=== PATIENT | male | born 1975 | race Caucasian/White ===

== ENCOUNTER → 2017-08-08 10:21 | Outpatient (CLI) | payer OTHER, SELFPAY ==
--- NOTE | 2017-08-08 10:32 | CT_ITS ---
CT abdomen pelvis w con CLINICAL INDICATION: Urinary frequency, chronic prostatitis, back/flank pain ITS.REASON: CHRONIC PROSTATIT, URINARY FREQUENCY, BACK PAIN ORDERING PHYSICIAN: Emerson Lyon MD PATIENT AGE: 42 years COMPARISON: 10/07/2010 TECHNIQUE: Axial images obtained with sagittal and coronal reformats. PROCEDURE: Oral Contrast: Redicat IV Contrast: 75 mL's Isovue-370. FINDINGS: Lung bases are clear. The liver, gallbladder, spleen, adrenal glands, and pancreas have an unremarkable appearance. No obstructing renal or ureteral calculus. No suspicious renal mass. There is a subcentimeter isodensity in the right kidney inferiorly and may be due to small cyst. No ureteral calculi. Urinary bladder has an unremarkable appearance. No evidence of diverticulitis or appendicitis. Mild amount retained colonic feces throughout the colon. No pelvic mass or abnormal fluid collection or focal inflammatory change. Prostate does not appear enlarged. There is a small left inguinal hernia which contains fat. No acute bony anomalies IMPRESSION: 1. No acute finding. No evidence of renal or ureteral calculi or suspicious renal mass. 2. Small left inguinal hernia containing fat
== END ==
PROVIDERS: Family Provider Emergency Medicine; PCP Emergency Medicine; Visit Provider Urology
DX: R35.0 Frequency of micturition (principal); M54.9 Dorsalgia, unspecified; N41.1 Chronic prostatitis
CPT/HCPCS: 74177; Q9967

== ENCOUNTER 2017-08-18 00:55 | Observation (INO) | payer OTHER, SELFPAY ==
[2017-08-18] VITALS (26 sets, daily range): BP systolic 97–125; BP diastolic 43–80; PULSE 62–117; RESP 14–20; TEMP 36.4–38.7; O2SAT 92–98; BMI 25.6; BMI 24.7
--- NOTE | 2017-08-18 01:22 | HMH.EDNVD ---
ED Disposition Clinical Impression: Acute appendicitis Qualifiers: Acute appendicitis type: unspecified acute appendicitis type Qualified Code(s): K35.80 - Unspecified acute appendicitis Disposition: Admitted as Observation Condition on Discharge: Good Instructions: DI for Acute Abdomen Referrals: Artur Wilson MD [Primary Care Provider] - - Critical Care Critical Care Time: No Attestation: On 08/18/17, the high probability of a clinically significant, sudden or life threatening deterioration of the following system(s) required my full and direct attention, intervention and personal management. The time I documented below is in addition to time spent performing reported procedures but includes the following listed in this critical care notation. Medical Decision Making - Medical Records Medical records reviewed: Yes: I reviewed the patient's medical records. Vital Signs: 08/18/17 00:56 Temperature 100.0 F H Temperature Source Oral Pulse Rate [Right Brachial] 117 H Respiratory Rate 16 Blood Pressure [Right Arm] 114/80 Blood Pressure Mean [Right Arm] 91 Blood Pressure Source [Right Arm] Automatic Cuff Blood Pressure Position [Right Arm] Supine 02 Sat by Pulse Oximetry 95 Oxygen Delivery Method Room Air - Lab Data Lab results reviewed: Yes: I reviewed the patient's lab results. Lab Results 08/18/17 01:35: WBC 17.4 H, RBC 5.16, Hgb 15.3, Hct 44.7, MCV 86.6, MCH 29.6, MCHC 34.1, RDW 12.9, Plt Count 252, MPV 7.5, Neut % (Auto) 87.2 H, Lymph % (Auto) 5.6 L, [place] % (Auto) 6.4, Eos % (Auto) 0.5, Baso % (Auto) 0.2, Neut # (Auto) 15.2 H, Lymph # (Auto) 1.0, [place] # (Auto) 1.1 H, Eos # (Auto) 0.1, Baso # (Auto) 0.0, Total Counted 100, Neutrophils % (Manual) 84 H, Band Neutrophils % 7.0, Lymphocytes % (Manual) 8 L, Monocytes % (Manual) 1 L, Platelet Estimate Normal, RBC Morphology Normal 08/18/17 01:35: Sodium 133 L, Potassium 3.8, Chloride 103, Carbon Dioxide 25, Anion Gap 8.8, BUN 26 H, Creatinine 1.29, Estimated Creat Clear 90, Estimated GFR 61, Est GFR ( Amer) 74, Glucose 110 H, Calcium 8.8, Total Bilirubin 0.5, AST 22, ALT 43, Alkaline Phosphatase 67, Total Protein 8.0, Albumin 4.0, Globulin 4.0 H, Albumin/Globulin Ratio 1.0 L, Amylase 70 08/18/17 01:35: Urine Color Yellow, Urine Appearance Clear, Urine pH 6.5, Ur Specific [place] 1.010, Urine Protein Trace, Urine Glucose (UA) Negative, Urine Ketones Negative, Urine Blood Negative, Urine Nitrate Negative, Urine Bilirubin Negative, Urine Urobilinogen 0.2, Ur Leukocyte Esterase Negative, Urine RBC Occasional, Urine WBC 3-5, Ur Squamous Epith Cells Occasional, Amorphous Sediment Trace 08/18/17 02:07: Influenza Type A Ag Negative, Influenza Type B Ag Negative Result diagrams: 08/18/17 01:35 08/18/17 01:35 Orders (Tests/Meds): ED MEDICATIONS Discontinued Medications Generic Name Dose Route Start Last Admin Trade Name Freq PRN Reason Stop Dose Admin Sodium Chloride 1,000 mls @ 999 mls/hr 08/18/17 01:30 08/18/17 02:00 Sod Chlor 0.9% 1000ml Bag IV 08/18/17 02:30 999 mls/hr .Q1H1M LEOLA Administration Iopamidol 75 ml 08/18/17 02:35 08/18/17 02:37 [id number]; 75ml Vial IV 08/18/17 02:36 75 ml ONCE ONE Administration Ketorolac Tromethamine 30 mg 08/18/17 02:05 08/18/17 02:15 Toradol 30mg/Ml Vial IV 08/18/17 02:06 30 mg ONCE ONE Administration Ondansetron HCl 4 mg 08/18/17 02:05 08/18/17 02:15 Zofran 4mg/2ml Vial IV 08/18/17 02:06 4 mg ONCE ONE Administration Sodium Chloride 10 ml 08/18/17 02:35 08/18/17 02:00 Rad-Saline Flush 10ml Syringe IV 08/18/17 02:36 10 ml ONCE ONE Administration ORDERS Category Date Time Status CT abdomen pelvis w con Stat Cat Scan 08/18/17 01:24 Taken CXR 2 view (NOT portable) [XR chest 2V] Stat Exams 08/18/17 01:25 Taken Lipase Stat Lab 08/18/17 01:35 Received - Radiology Data #1 Image(s): Chest Image Reviewed: Yes I reviewed the patient's
--- NOTE | 2017-08-18 01:24 | CT_ITS ---
CT abdomen pelvis w con COMPARISON: CT scan abdomen pelvis 08/08/2017 HISTORY: Right lower quadrant pain with some diarrhea TECHNIQUE: Multiple axial scans obtained from the hemidiaphragms to the pelvic floor and were performed with IV contrast only. FINDINGS: The lower lung leslie are clear. The liver spleen stomach pancreas and gallbladder appear normal. The adrenal glands are normal. The kidneys are normal size and show symmetrical function both appearing normal. There are mildly dilated fluid-filled loops of distal small bowel. There is both formed stool and some liquid stool within the cecum and lower ascending colon. Both of these findings represent a change from the recent CT scan. The appendix is well-seen and is upper limits of normal caliber measuring 8 to 9 mm in diameter. There is no significant periappendiceal or pericecal stranding. However the mildly dilated cecum could represent a mild focal ileus. There is moderate stool in the descending and sigmoid colon. The urinary bladder and prostate are normal. There is a small left inguinal hernia containing fat only. IMPRESSION: Slightly and diffusely enlarged appendix with adjacent fluid within the cecum possibly representing a focal ileus and the findings suggest possibility of a very early acute appendicitis. There may have been a 1 to 2 mm increase in diameter of the appendix when compared to the recent CT scan of 08/08/2017 and there appears to be slight wall enhancement of the appendix 1 compared to the previous study. I basically agree with the [facility] report.
--- NOTE | 2017-08-18 01:25 | XR_ITS ---
XR chest 2V INDICATION: Cough COMPARISON: PA and lateral chest 09/03/2016 FINDINGS: The lung leslie are well expanded and appear clear of infiltrate. The cardiomediastinal silhouette and vascularity are normal. The costophrenic angles are clear. The bony thorax is normal. IMPRESSION: Normal chest.
--- NOTE | 2017-08-18 01:26 | ED_ITS ---
ED Disposition Clinical Impression: Acute appendicitis Qualifiers: Acute appendicitis type: unspecified acute appendicitis type Qualified Code(s) : K35.80 - Unspecified acute appendicitis Disposition: Admitted as Observation Condition on Discharge: Good Instructions: DI for Acute Abdomen Referrals: Artur Wilsno MD [Primary Care Provider] - - Critical Care Critical Care Time: No Attestation: On 08/18/17, the high probability of a clinically significant, sudden or life threatening deterioration of the following system(s) required my full and direct attention, intervention and personal management. The time I documented below is in addition to time spent performing reported procedures but includes the following listed in this critical care notation. Medical Decision Making - Medical Records Medical records reviewed: Yes: I reviewed the patient's medical records. Vital Signs: 08/18/17 00:56 Temperature 100.0 F H Temperature Source Oral Pulse Rate [Right Brachial] 117 H Respiratory Rate 16 Blood Pressure [Right Arm] 114/80 Blood Pressure Mean [Right Arm] 91 Blood Pressure Source [Right Arm] Automatic Cuff Blood Pressure Position [Right Arm] Supine 02 Sat by Pulse Oximetry 95 Oxygen Delivery Method Room Air - Lab Data Lab results reviewed: Yes: I reviewed the patient's lab results. Lab Results 08/18/17 01:35: WBC 17.4 H, RBC 5.16, Hgb 15.3, Hct 44.7, MCV 86.6, MCH 29.6, MCHC 34.1, RDW 12.9, Plt Count 252, MPV 7.5, Neut % (Auto) 87.2 H, Lymph % (Auto ) 5.6 L, [place] % (Auto) 6.4, Eos % (Auto) 0.5, Baso % (Auto) 0.2, Neut # (Auto) 15.2 H, Lymph # (Auto) 1.0, [place] # (Auto) 1.1 H, Eos # (Auto) 0.1, Baso # (Auto ) 0.0, Total Counted 100, Neutrophils % (Manual) 84 H, Band Neutrophils % 7.0, Lymphocytes % (Manual) 8 L, Monocytes % (Manual) 1 L, Platelet Estimate Normal, RBC Morphology Normal 08/18/17 01:35: Sodium 133 L, Potassium 3.8, Chloride 103, Carbon Dioxide 25, Anion Gap 8.8, BUN 26 H, Creatinine 1.29, Estimated Creat Clear 90, Estimated GFR 61, Est GFR ( Amer) 74, Glucose 110 H, Calcium 8.8, Total Bilirubin 0.5, AST 22, ALT 43, Alkaline Phosphatase 67, Total Protein 8.0, Albumin 4.0, Globulin 4.0 H, Albumin/Globulin Ratio 1.0 L, Amylase 70 08/18/17 01:35: Urine Color Yellow, Urine Appearance Clear, Urine pH 6.5, Ur Specific [place] 1.010, Urine Protein Trace, Urine Glucose (UA) Negative, Urine Ketones Negative, Urine Blood Negative, Urine Nitrate Negative, Urine Bilirubin Negative, Urine Urobilinogen 0.2, Ur Leukocyte Esterase Negative, Urine RBC Occasional, Urine WBC 3-5, Ur Squamous Epith Cells Occasional, Amorphous Sediment Trace 08/18/17 02:07: Influenza Type A Ag Negative, Influenza Type B Ag Negative Result diagrams: 08/18/17 01:35 08/18/17 01:35 Orders (Tests/Meds): ED MEDICATIONS Discontinued Medications Generic Name Dose Route Start Last Admin Trade Name Anastacioq PRN Reason Stop Dose Admin Sodium Chloride 1,000 mls @ 999 mls/hr 08/18/17 01:30 08/18/17 02:00 Sod Chlor 0.9% 1000ml Bag IV 08/18/17 02:30 999 mls/hr .Q1H1M LEOLA Administration Iopamidol 75 ml 08/18/17 02:35 08/18/17 02:37 [id number]; 75ml Vial IV 08/18/17 02:36 75 ml ONCE ONE Administration Ketorolac Tromethamine 30 mg 08/18/17 02:05 08/18/17 02:15 Toradol 30mg/Ml Vial IV 08/18/17 02:06 30 mg ONCE ONE Administration Ondansetron HCl 4 mg 08/18/17 02:0
[2017-08-18 01:48] LABS: Microscopic, Urine URINE MICROSCOPIC (MICROSCOPIC)
[2017-08-18 01:50] LABS: Appearance,Urine CLEAR (Clear); Basophils % 0.2 % (0.1-2.0); Bilirubin,Urine Negative (Negative); Blood, Urine Negative (Negative); Color,Urine YELLOW (Yellow); Eosinophils # 0.1 K/mm3 (0.0-0.4); Eosinophils % 0.5 % (0.1-12.0); Glucose,Urine (UA) Negative (Negative); Hematocrit 44.7 % (42.0-52.0); Hemoglobin 15.3 g/dL (14.1-18.0); Ketones,Urine Negative (Negative); Leukocyte Esterase,Urine Negative (Negative); Lymphocytes % 5.6 K/mm3 (10-50); Mean Corpuscular HGB Conc 34.1 g/dL (31.8-35.4); Mean Corpuscular Hemoglobin 29.6 pg (27.0-31.2); Mean Corpuscular Volume 86.6 fl (80-94); Mean Platelet Volume 7.5 fl (7.4-10.4); Monocytes # 1.1 K/mm3 (0.1-1.0); Monocytes % 6.4 % (1.7-9.3); Neutrophils # 15.2 K/mm3 (1.8-7.8); Neutrophils % 87.2 % (37.0-80.0); Nitrate,Urine Negative (Negative); PH,Urine 6.5 (5.0-8.5); Platelet Count 252 K/mm3 (142-424); Protein,Urine TRACE (Negative); Red Blood Count 5.16 M/mm3 (4.60-6.20); Red Cell Distribution Width 12.9 % (11.5-17.5); Urobilinogen,Urine 0.2 EU/dl (0.2); White Blood Count 17.4 K/mm3 (4.8-10.8)
[2017-08-18 01:56] LABS: MANUAL DIFFERENTIAL MANUAL DIFFERENTIAL (MANUAL DIFF)
[2017-08-18 01:57] LABS: Amorphous Sediment,Urine Trace /lpf; RBC,Urine Occasional #/hpf (0-3); Squamous Epithelial Cell,Urine Occasional #/hpf (0-5)
[2017-08-18 02:02] LABS: Alanine Aminotransferase 43 U/L (12-78); Alkaline Phosphatase 67 U/L (46-116); Amylase 70 U/L (25-125); Anion Gap 8.8 mEq/L (5-15); Aspartate Amino Transferase 22 U/L (15-37); Bilirubin,Total 0.5 mg/dL (0.2-1.0); Blood Urea Nitrogen 26 mg/dL (7-18); Calcium 8.8 mg/dL (8.5-10.1); Carbon Dioxide 25 mmol/L (21.0-32.0); Chloride 103 mmol/L (98-107); Creatinine Clearance Estimated 90 mL/min (0-300); Creatinine,Serum 1.29 mg/dL (0.70-1.30); Estimated Glomerular Filt Rate 61 ml/min (>60); GFR (African American) 74 ML/MIN (>60); Glucose 110 mg/dL (74-106); Lymphocytes % 8 % (10-50); Monocytes % 1 % (2-9); Neutrophils % 84 % (42-76); Platelet Estimate Normal; Potassium 3.8 mmoL/L (3.5-5.1); RBC Morphology Normal; Sodium 133 mmol/L (136-145); Total Cells Counted 100
[2017-08-18 03:17] LABS: Lipase 168 u/L (73-393)
--- NOTE | 2017-08-18 03:27 | PC.NURSE ---
Called report to Ioana
--- NOTE | 2017-08-18 07:41 | PC.NURSE ---
DENNIS FOX RN NOTIFIED OF PATIENT TEMP 101.6
--- NOTE | 2017-08-18 07:59 | HMH.GSHP ---
HPI HPI: Abdominal pain Patient is a 42-year-old white male. He is a an unusual history that he had some sharp right lower quadrant abdominal pain he was 12 years old and there is a concern for possible appendicitis but he never underwent appendectomy. He states that for the past couple of months he has had intermittent abdominal pain. He describes this is mostly diffuse but somewhat localized to the right lower quadrant. Yesterday became quite significant and severe. He presented to the emergency department early this morning where he was found a moderate leukocytosis. He underwent CT scan with IV contrast which revealed findings of acute appendicitis. He was admitted for inpatient management and planned appendectomy. Patient denies diarrhea. Denies vomiting but has had some nausea. He does describe somewhat of a cough that is nonproductive. [facility] History Medical History: Denies:: Cancer, Diabetes Mellitus Type 1, Diabetes Mellitus Type 2, Internal Pacemaker, MRSA Other Surgeries: No: Pacemaker Amputation: No Fractures: Yes - *Social History Educational Level: Completed High School Smoking Status: Never smoker Alcohol Intake: never Occupational Status: unemployed Household Members: significant other, children - Psychiatric History Expresses thoughts of harming self/others: None Suicide Plan Description: No Plan Review of Systems - Constitutional Reports chills, Reports fever(s) - Eyes Denies change in vision - ENT Denies hearing loss - *Cardiovascular Denies chest pain - *Respiratory Reports cough - *Gastrointestinal Reports abdominal pain - *Genitourinary Reports difficulty urinating - *Musculoskeletal Reports joint swelling - *Neurologic Reports headache(s), Denies seizure-like activity Meds Home Medications Medication Instructions Recorded Confirmed Type Atorvastatin Calcium [Atorvastatin 20 mg PO DAILY 08/18/17 08/18/17 History 20mg Tab] Cyclobenzaprine HCl [Flexeril 10mg 10 mg PO TID 08/18/17 08/18/17 History tablet] Meloxicam [Mobic] 15 mg PO DAILY 08/18/17 08/18/17 History Sertraline HCl [Zoloft] 150 mg PO DAILY 08/18/17 08/18/17 History Tamsulosin HCl [Flomax 0.4mg 0.4 mg PO BID 08/18/17 08/18/17 History capsule] Zolpidem Tartrate [Ambien 10mg 10 mg PO HS 08/18/17 08/18/17 History tablet] Allergies Allergy/AdvReac Type Severity Reaction Status Date / Time meperidine Allergy Unknown Verified 08/18/17 01:59 Exam Vital signs and Labs for Last 24 Hours: Temp Pulse Resp BP Pulse Ox 101.6 F H 104 H 16 101/61 95 08/18/17 07:43 08/18/17 07:43 08/18/17 07:43 08/18/17 07:43 08/18/17 07:43 - Constitutional mild distress - *Routine Respiratory Exam Present: CTA bilaterally - *Routine Cardiovascular Exam Present: RRR - *Routine Abdominal Exam Present: soft, tenderness Assessment and Plan - Assessment and plan all Dx Assessment and Plan for all problems:: Patient's clinical presentation is somewhat atypical. However he does have pain localizing to the right lower quadrant with tenderness and CT evidence of acute appendicitis. Plan for laparoscopic with possibly open appendectomy.
--- NOTE | 2017-08-18 08:31 | HMH.ANESCL ---
[facility] Anesthesia Checklist - Patient Identification Patient Identification: Arm Band, Verbal (Name & ) - Structural Data Admitted From: Inpatient Planned Operative Procedure/s: lap appy Consent for Planned Operative Procedure(s) Verified: Yes Verified Documents: Surgical Consent - NPO Status Verified Time NPO: 00:00 - Chart Verification Results Verified: CBC, BMP - Additional verifications Patient : No Anesthesia Reactions: No Hx Blood Transfusions: No Blood Transfusion Reaction: No Cephalosporin Allergy: No Previous Colonoscopy: No - Cardiovascular Assessment Heart Sounds: S1 & S2 Pulse Strength: Baseline Pulse Rhythm: Regular Peripheral Edema: No - Airway Assessment C-Spine Mobility Assessed: Yes TMJ Mobility Assessed: Yes Dentition: Good Dentition - Neurological Assessment Level of Consciousness: Awake, Alert, Appropriate Hx Seizures: No Numbness or tingling in extremities: No - Anesthesia Plan Anesthesia Risk discussed: Yes Anesthesia Plan: Verified ASA Class: II Anesthesia Type: General [facility] Anesthesia HX I have reviewed the patient's past medical history: Yes Medical History: Reports:: Gastroesophageal Reflux Disease(GERD), Hyperlipidemia Denies:: Cancer, Diabetes Mellitus Type 1, Diabetes Mellitus Type 2, Internal Pacemaker, MRSA Other Surgeries: No: Pacemaker Amputation: No Fractures: Yes
--- NOTE | 2017-08-18 09:46 | HMH.OPNOTE ---
Date of procedure: 08/18/17 Pre-op Diagnosis:: Appendicitis Post-op diagnosis:: same Procedure performed:: Laparoscopic appendectomy Surgeon:: Octavio Maldonado MD CATERER HELPER:: Álvaro Kramer Anesthesia: GETKandace Estimated blood loss (mL): 20 Clinical Note:: Patient is a 42-year-old white male. He states that for a couple of months he has had intermittent abdominal pains. However, yesterday he developed onset of what he describes as diffuse abdominal pain. Became more intense and localized to the right lower quadrant. He ultimately presented to the emergency department early this morning on 08/18/17. He was found to have a leukocytosis of 17,000. He had CT scan with IV contrast which revealed findings suggestive of non-complicated appendicitis. He was admitted for inpatient management. Interestingly the patient had some documented fevers. Arrangements were made for appendectomy based on clinical presentation and CT findings. Operative findings:: Somewhat edematous mildly thickened non-suppurative non-necrotic appendix. Operative note:: Consent was obtained and patient was taken to the operating room. General anesthesia was induced. Saleh catheter was placed. He was given preoperative intravenous antibiotics. Abdomen was prepped and draped. Subumbilical skin incision was made and while performing abdominal wall lift Veress needle was inserted. CO2 pneumoperitoneum was achieved to 15 mmHg. 12 mm optical trocar was inserted at the umbilicus. Patient was positioned in Trendelenburg with left side down. A 5 mm trocar was inserted in the suprapubic location. 5 mm trocar was inserted in the right upper abdomen. 10 mm 0? laparoscope was replaced with a 5 mm 30? laparoscope. Appendix was identified. He did have a somewhat elongated cecum with the appendix in the pelvis on the right. Appendix was grasped and retracted anteriorly. The appendix was somewhat edematous and mildly thickened. Mesoappendix was divided with Genaro ultrasonic harmonic juan carlos with care taken to coagulate the appendiceal artery. Dissection was carried down to the appendiceal base. Appendix was amputated at its base with an endoscopic RACHID linear cutting stapling device. The appendix was placed within an Endo Catch retrieval device and removed from the peritoneal cavity via the umbilical trocar site. Appendiceal stump staple line was inspected for hemostasis and integrity which was assured. Pelvis, pericecal location, and perihepatic region were irrigated and aspirated until clear. Trochars were removed as CO2 pneumoperitoneum was evacuated. Fascia at the umbilicus was closed with 0 Vicryl [id number] suture. Local anesthetic was infiltrated. Skin incisions were closed with 4-0 Monocryl in subcuticular fashion. Steri-Strips and clean dry sterile dressings were applied. Condition: stable Disposition: PACU Specimens:: Appendix Complications:: None
--- NOTE | 2017-08-18 09:51 | P.OP_ITS ---
Date of procedure: 08/18/17 Pre-op Diagnosis:: Appendicitis Post-op diagnosis:: same Procedure performed:: Laparoscopic appendectomy Surgeon:: Octavio Maldonado MD SEARCH ENGINE OPTIMIZATION STRATEGIST:: Álvaro Kramer Anesthesia: GETKanadce Estimated blood loss (mL): 20 Clinical Note:: Patient is a 42-year-old white male. He states that for a couple of months he has had intermittent abdominal pains. However, yesterday he developed onset of what he describes as diffuse abdominal pain. Became more intense and localized to the right lower quadrant. He ultimately presented to the emergency department early this morning on 08/18/17. He was found to have a leukocytosis of 17,000. He had CT scan with IV contrast which revealed findings suggestive of non-complicated appendicitis. He was admitted for inpatient management. Interestingly the patient had some documented fevers. Arrangements were made for appendectomy based on clinical presentation and CT findings. Operative findings:: Somewhat edematous mildly thickened non-suppurative non-necrotic appendix. Operative note:: Consent was obtained and patient was taken to the operating room. General anesthesia was induced. Saleh catheter was placed. He was given preoperative intravenous antibiotics. Abdomen was prepped and draped. Subumbilical skin incision was made and while performing abdominal wall lift Veress needle was inserted. CO2 pneumoperitoneum was achieved to 15 mmHg. 12 mm optical trocar was inserted at the umbilicus. Patient was positioned in Trendelenburg with left side down. A 5 mm trocar was inserted in the suprapubic location. 5 mm trocar was inserted in the right upper abdomen. 10 mm 0? laparoscope was replaced with a 5 mm 30? laparoscope. Appendix was identified. He did have a somewhat elongated cecum with the appendix in the pelvis on the right. Appendix was grasped and retracted anteriorly. The appendix was somewhat edematous and mildly thickened. Mesoappendix was divided with Genaro ultrasonic harmonic juan carlos with care taken to coagulate the appendiceal artery. Dissection was carried down to the appendiceal base. Appendix was amputated at its base with an endoscopic RACHID linear cutting stapling device. The appendix was placed within an Endo Catch retrieval device and removed from the peritoneal cavity via the umbilical trocar site. Appendiceal stump staple line was inspected for hemostasis and integrity which was assured. Pelvis, pericecal location, and perihepatic region were irrigated and aspirated until clear. Trochars were removed as CO2 pneumoperitoneum was evacuated. Fascia at the umbilicus was closed with 0 Vicryl [id number] suture. Local anesthetic was infiltrated. Skin incisions were closed with 4-0 Monocryl in subcuticular fashion. Steri-Strips and clean dry sterile dressings were applied. Condition: stable Disposition: PACU Specimens:: Appendix Complications:: None
--- NOTE | 2017-08-18 10:05 | P.PN_ITS ---
[facility] Anesthesia Record Part I Intake, IV Amount: 900 Estimated blood loss (mL): 10 Urine output (mL): 50 Blood Products used (#): none Blood Pressure: 109/57 SaO2: 92 Pulse Rate: 79 Respiratory Rate: 18 Temperature: 99.2 F Patient is:: Drowsy, Stable Stable to PACU at:: 10:01
--- NOTE | 2017-08-18 10:06 | P.PN_ITS ---
[facility] Anesthesia Record Part II Discharge Time: 10:31 Destination: Medical Surgical Department PACU nurse assessment reviewed?: Yes Patient Condition:: Good Anesthesia Complications:: None
--- NOTE | 2017-08-18 10:21 | PC.NURSE ---
0945-Saleh Catheter removed at this time.
--- NOTE | 2017-08-18 10:46 | HMH.PHAVTE ---
[facility] Pharmacy VTE Monitoring - Patient Demographics Admission date: 08/18/17 Report Date: 08/18/17 Time: 10:46 Allergies/Adverse Reactions: Patient Allergies meperidine Allergy (Unknown, Verified 08/18/17 01:59) Height: 1.83 m Weight: 82.781 kg Patient Problems: Current Active Problems Acute appendicitis (Acute) - VTE Risk Labs: VTE Related Lab Results Hgb 15.3 g/dL (14.1-18.0) 08/18/17 01:35 Hct 44.7 % (42.0-52.0) 08/18/17 01:35 Plt Count 252 K/mm3 (142-424) 08/18/17 01:35 BUN 26 mg/dL (7-18) H 08/18/17 01:35 Creatinine 1.29 mg/dL (0.70-1.30) 08/18/17 01:35 Estimated Creat Clear 90 mL/min (0-300) 08/18/17 01:35 VTE Score: 3 VTE Risk Level: Low Risk - Prophylaxis VTE Prophylaxis Ordered?: Yes Types of VTE Prophylaxis: TEDS Knee High Location of Applied Device: Bilateral Lower Extremeties
--- NOTE | 2017-08-18 11:02 | SUR.PHASEI ---
1020-pt eating ice chips, tolerating well. 1025-pt sipping gatorade, tolerating well.
[2017-08-18 11:08] LABS: Appearance,Urine/Cath CLEAR (Clear); Bilirubin,Cath Negative (Negative); Blood, Urine/Cath Negative (Negative); Color,Urine/Cath YELLOW (Yellow); Glucose,Urine/Cath (UA) Negative (Negative); Ketones,Urine/Cath Negative (Negative); Leukocyte Esterase,Cath Negative (Negative); Microscopic,Cath URINE MICROSCOPIC (MICROSCOPIC); Nitrate,Cath Negative (Negative); PH,Urine/Cath 6.5 (5.0-8.5); Protein,Urine/Cath 1+ (Negative)
[2017-08-18 11:22] LABS: Bacteria,Urine/Cath 2+ /lpf; Squamous Epithelial Ur./Cath Occasional #/hpf (0-5)
--- NOTE | 2017-08-18 12:56 | PC.NURSE ---
0800 PATIENT HAS A TEMP OF 101.6 , AND NOTIFIED, NO NEW ORDERS GIVEN.
--- NOTE | 2017-08-18 17:13 | PC.NURSE ---
PATIENT HAD AN APPY TODAY, HAS BEEN RESTING IN BED THIS AFTERNOON. FAMILY AT BEDSIDE. HAVE GIVEN PAIN MEDS TWICE . WILL CONTINUE TO MONITOR.
--- NOTE | 2017-08-18 19:01 | PC.NURSE ---
REPORT GIVEN TO PING MAYA
[2017-08-19 04:16] VITALS: BP 93/44; PULSE 73; RESP 16; TEMP 36.8; O2SAT 94
--- NOTE | 2017-08-19 04:20 | PC.NURSE ---
PATIENT SEEMS TO HAVE RESTED WELL SO FAR THIS SHIFT. HE C/O PAIN TO LOWER ABD X2. THE FIRST C/O PAIN HE HAD HE WAS GIVEN PRN MORPHINE, WHICH BROUGHT HIS PAIN LEVEL FROM A 9/10 TO 6/10. HE RECEIVED PO PAIN MEDS THE SECOND C/O AND HAS RESTED WELL. DRESSINGS TO LAP SITES X3 ARE INTACT, WITH THE LOWER DRESSING HAVING 2 SMALL SEROUSANGUINOUS DRAINAGE SPOTS THAT HAVE REMAINED UNCHANGED SINCE THE BEGINNING OF SHIFT. PATIENT CURRENTLY IN BED RESTING. NO OTHER PROBLEMS NOTED AT THIS TIME. VSS. WILL CONTINUE TO MONITOR. SAFETY MEASURES IN PLACE, CALL LIGHT IN REACH.
[2017-08-19 06:03] LABS: Basophils % 0.1 % (0.1-2.0); Eosinophils # 0.1 K/mm3 (0.0-0.4); Eosinophils % 0.3 % (0.1-12.0); Hematocrit 38.7 % (42.0-52.0); Hemoglobin 12.9 g/dL (14.1-18.0); Lymphocytes # 2.4 K/mm3 (0.7-4.5); Lymphocytes % 15.5 K/mm3 (10-50); Mean Corpuscular HGB Conc 33.3 g/dL (31.8-35.4); Mean Corpuscular Hemoglobin 29.7 pg (27.0-31.2); Mean Corpuscular Volume 89.4 fl (80-94); Mean Platelet Volume 7.3 fl (7.4-10.4); Monocytes # 1.1 K/mm3 (0.1-1.0); Monocytes % 6.8 % (1.7-9.3); Neutrophils # 11.9 K/mm3 (1.8-7.8); Neutrophils % 77.2 % (37.0-80.0); Platelet Count 199 K/mm3 (142-424); Red Blood Count 4.33 M/mm3 (4.60-6.20); White Blood Count 15.5 K/mm3 (4.8-10.8)
[2017-08-19 06:07] LABS: MANUAL DIFFERENTIAL MANUAL DIFFERENTIAL (MANUAL DIFF)
[2017-08-19 06:24] LABS: Lymphocytes % 8 % (10-50); Monocytes % 3 % (2-9); Neutrophils % 78 % (42-76); Platelet Estimate Normal; RBC Morphology Normal; Total Cells Counted 100
[2017-08-19 07:43] VITALS: BP 104/57; PULSE 75; RESP 16; TEMP 36.8; O2SAT 94
--- NOTE | 2017-08-19 09:01 | HMH.DCSUM ---
General - General Admission date: 08/18/17 Discharge date: 08/19/17 HPI HPI: Abdominal pain Patient is a 42-year-old white male. He is a an unusual history that he had some sharp right lower quadrant abdominal pain he was 12 years old and there is a concern for possible appendicitis but he never underwent appendectomy. He states that for the past couple of months he has had intermittent abdominal pain. He describes this is mostly diffuse but somewhat localized to the right lower quadrant. Yesterday became quite significant and severe. He presented to the emergency department early this morning where he was found a moderate leukocytosis. He underwent CT scan with IV contrast which revealed findings of acute appendicitis. He was admitted for inpatient management and planned appendectomy. Patient denies diarrhea. Denies vomiting but has had some nausea. He does describe somewhat of a cough that is nonproductive. Objective Vital signs: Temp Pulse Resp BP Pulse Ox 98.2 F 75 16 104/57 94 L 08/19/17 07:43 08/19/17 07:43 08/19/17 07:43 08/19/17 07:43 08/19/17 07:43 mild distress - *Routine Respiratory Exam Present: CTA bilaterally - *Routine Cardiovascular Exam Present: RRR - *Routine Abdominal Exam Present: soft, tenderness Hospital Course Hospital Course: Patient was admitted. He was started on intravenous Unasyn for antibiotic coverage of apparent appendicitis. Interestingly, after admission he had continued low-grade fevers with fever as high as 101.6?F immediately prior to surgery. He was taken to the operating room several hours after admission and underwent laparoscopic appendectomy. Is found to have a mild to moderately inflamed edematous somewhat thickened appendix which was nonsuppurative than on necrotic. Postoperatively he was admitted for continued inpatient convalescence and care. Interestingly, following surgery he never had another fever. He was continued on Unasyn. He was given a bland diet which she tolerated without difficulty. The following morning he felt quite well. He had no nausea and no significant abdominal pain and was tolerating bland diet without difficulty. White blood cell count was rechecked and was still mildly elevated at 15,000. Plan was made for discharge home at this time with continuation of outpatient antibiotics for several days due to the mild leukocytosis. Results Labs on day of discharge: Labs from last 24 hours 08/19/17 08/18/17 05:50 09:00 WBC 15.5 H RBC 4.33 L Hgb 12.9 L Hct 38.7 L MCV 89.4 MCH 29.7 MCHC 33.3 RDW 13.0 Plt Count 199 MPV 7.3 L Neut % (Auto) 77.2 Lymph % (Auto) 15.5 [place] % (Auto) 6.8 Eos % (Auto) 0.3 Baso % (Auto) 0.1 Neut # (Auto) 11.9 H Lymph # (Auto) 2.4 [place] # (Auto) 1.1 H Eos # (Auto) 0.1 Baso # (Auto) 0.0 Total Counted 100 Neutrophils % (Manual) 78 H Band Neutrophils % 11.0 H Lymphocytes % (Manual) 8 L Monocytes % (Manual) 3 Platelet Estimate Normal RBC Morphology Normal Urine Color Yellow Urine Appearance Clear Urine pH 6.5 Ur Specific [place] 1.020 Urine Protein 1+ Urine Glucose (UA) Negative Urine Ketones Negative Urine Blood Negative Urine Nitrate Negative Urine Bilirubin Negative Urine Urobilinogen 1.0 Ur Leukocyte Esterase Negative Urine WBC 3-5 Ur Squamous Epith Cells Occasional Urine Bacteria 2+ A DS: Diagnosis - Discharge Diagnosis (1) Acute appendicitis Status: Acute Discharge Plan - Patient Discharge Instructions ACTIVITY: No heavy lifting DIET: advance to your usual diet - Follow up Plan Follow up with: Octavio Maldonado MD [Staff Physician] - 2 weeks Disposition: Home, Self-Jail Medications: Home Medications Medication Instructions Recorded Confirmed Type Atorvastatin Calcium [Atorvastatin 20 mg PO DAILY 08/18/17 08/18/17 History 20mg Tab] Cyclobenzaprine
--- NOTE | 2017-08-19 09:04 | P.DS_ITS ---
General - General Admission date: 08/18/17 Discharge date: 08/19/17 HPI HPI: Abdominal pain Patient is a 42-year-old white male. He is a an unusual history that he had some sharp right lower quadrant abdominal pain he was 12 years old and there is a concern for possible appendicitis but he never underwent appendectomy. He states that for the past couple of months he has had intermittent abdominal pain. He describes this is mostly diffuse but somewhat localized to the right lower quadrant. Yesterday became quite significant and severe. He presented to the emergency department early this morning where he was found a moderate leukocytosis. He underwent CT scan with IV contrast which revealed findings of acute appendicitis. He was admitted for inpatient management and planned appendectomy. Patient denies diarrhea. Denies vomiting but has had some nausea. He does describe somewhat of a cough that is nonproductive. Objective Vital signs: Temp Pulse Resp BP Pulse Ox 98.2 F 75 16 104/57 94 L 08/19/17 07:43 08/19/17 07:43 08/19/17 07:43 08/19/17 07:43 08/19/17 07:43 mild distress - *Routine Respiratory Exam Present: CTA bilaterally - *Routine Cardiovascular Exam Present: RRR - *Routine Abdominal Exam Present: soft, tenderness Hospital Course Hospital Course: Patient was admitted. He was started on intravenous Unasyn for antibiotic coverage of apparent appendicitis. Interestingly, after admission he had continued low-grade fevers with fever as high as 101.6?F immediately prior to surgery. He was taken to the operating room several hours after admission and underwent laparoscopic appendectomy. Is found to have a mild to moderately inflamed edematous somewhat thickened appendix which was nonsuppurative than on necrotic. Postoperatively he was admitted for continued inpatient convalescence and care. Interestingly, following surgery he never had another fever. He was continued on Unasyn. He was given a bland diet which she tolerated without difficulty. The following morning he felt quite well. He had no nausea and no significant abdominal pain and was tolerating bland diet without difficulty. White blood cell count was rechecked and was still mildly elevated at 15,000. Plan was made for discharge home at this time with continuation of outpatient antibiotics for several days due to the mild leukocytosis. Results Labs on day of discharge: Labs from last 24 hours 08/19/17 08/18/17 05:50 09:00 WBC 15.5 H RBC 4.33 L Hgb 12.9 L Hct 38.7 L MCV 89.4 MCH 29.7 MCHC 33.3 RDW 13.0 Plt Count 199 MPV 7.3 L Neut % (Auto) 77.2 Lymph % (Auto) 15.5 [place] % (Auto) 6.8 Eos % (Auto) 0.3 Baso % (Auto) 0.1 Neut # (Auto) 11.9 H Lymph # (Auto) 2.4 [place] # (Auto) 1.1 H Eos # (Auto) 0.1 Baso # (Auto) 0.0 Total Counted 100 Neutrophils % (Manual) 78 H Band Neutrophils % 11.0 H Lymphocytes % (Manual) 8 L Monocytes % (Manual) 3 Platelet Estimate Normal RBC Morphology Normal Urine Color Yellow Urine Appearance Clear Urine pH 6.5 Ur Specific [place] 1.020 Urine Protein 1+ Urine Glucose (UA) Negative Urine Ketones Negative Urine Blood Negative
== END 2017-08-19 10:15 | disposition home or self-care (01) ==
LOC: ER 03:18 → 2ND 03:52
PROVIDERS: Admitting Provider Surgery; Emergency Provider Emergency Medicine; Family Provider Emergency Medicine; PCP Nurse Anesthetist, Certified Registered; Visit Provider Surgery
PROC: 0DTJ4ZZ Resection of Appendix, Percutaneous Endoscopic Approach (ICD-10-PCS; CPT 44970; principal; 2017-08-18 08:30)
DX: K35.89 Other acute appendicitis (principal)
CPT/HCPCS: 44970; 36415; 71046; 74177; 80053; 81001; 82150; 83690; 85007; 85025; 87086; 87275; 87276; 88304; 96365; 96374; 96375; 99284; G0378; J0131; J2270; J2405; Q9967

== ENCOUNTER 2017-09-11 17:27 | Emergency (ER) | payer OTHER, SELFPAY ==
[2017-09-11 18:15] VITALS: BP 136/84; PULSE 91; RESP 18; TEMP 37.4; O2SAT 97; BMI 25.0
[2017-09-11 18:40] LABS: UTC Influenza A Antigen Negative (Negative); UTC Influenza B Antigen Negative (Negative); UTC Strep Screen (Rapid) Negative (Negative)
--- NOTE | 2017-09-11 18:55 | HMH.EDUTC ---
[facility] [place] Disposition Clinical Impression: Influenza-like illness, Exposure to influenza Disposition: Home, Self-Care Condition on Discharge: Good Instructions: DI for Influenza -- Adult Additional Instructions: * Start Tamiflu today if you are going to take it. Discussed risks, side effects, risk of allergic reaction, and possible benefits. We even discussed hallucinations and uncontrollable fevers. still wants tamiflu. Encouraged to monitor closely.. * Lots of rest * Increase fluids, water, gatorade, powerade, pedialyte if /toddler/child * Monitor Temp. Tylenol every 4 hours as needed no more then 5 times a day or 4000mg in 24 hours and/or ibuprofen every 6 hours as needed no more then 3200mg in 24 hours (as long as your primary care doctor has told you that it is ok to take both) for fever/aches/pain. ER if fever no less than 101 despite tylenol and Ibuprofen * Bromfed may cause drowsiness. Know how it effects you (or your child) before driving, caring for small children, or sending your child to school. No other antihistamines/allergy medications while taking bromfed. * You (or your child) are contagious until no fever, aches, chills x 24 hours without medication for symptoms. * * Per hospital policy, Your throat swab was sent for culture. Those results are typically sent to your primary care. Be sure to follow up in 2-3 days if no improvement so they can review those results and treat if necessary. If you don't have primary care, I recommend you get one but in the mean time, you will have to return to a walk in clinic. Prescriptions: Brompheniramine/Pseudoephed/Dm [Bromfed DM Cough Syrup 5mL] 10 ml PO QID PRN #240 ml PRN Reason: Cough Oseltamivir Phosphate [Tamiflu 75mg Capsule] 75 mg PO BID #10 cap Referrals: Artur Wilson MD [Primary Care Provider] - (Follow up IMMEDIATELY for new or worsening symptoms, improvement followed by suddenly feeling worse OR no noticeable improvement over the next 72 hours. 911 for difficulty breathing) Time of Disposition: 18:57 Medical Decision Making - Abraham Inquiry Pt receiving controlled substance: No Vital Signs: 09/11/17 18:15 09/11/17 19:06 Temperature 99.3 F 99.1 F Temperature Source Oral Pulse Rate 86 Pulse Rate [Right Radial] 91 H Respiratory Rate 18 18 Blood Pressure 135/82 Blood Pressure [Right Arm] 136/84 Blood Pressure Mean [Right Arm] 101 Blood Pressure Position [Right Arm] Sitting 02 Sat by Pulse Oximetry 97 Oxygen Delivery Method Room Air Room Air - Lab Data Lab results reviewed: Yes: I reviewed the patient's lab results. Lab Results 09/11/17 18:38: Influenza Type A Ag Negative, Influenza Type B Ag Negative, Strep Scn Rapid Clinic Negative Orders (Tests/Meds): ORDERS Category Date Time Status Strep Screen Confirmation Stat Micro 09/11/17 18:38 Received [facility] [place] HPI - General Stated complaint: cough Time Seen by Provider: 09/11/17 18:00 Mode of Arrival: Family Vehicle Source of Information: Patient Limitations: No Limitations Description of Symptoms (Recalled from Triage Doc. by RN): COUGH AND SINUS PRESSURE HEENT Symptoms (Recalled from RN notes): Yes (SINUS PRESSURE) Resp Symptoms (Recalled from RN notes): Yes (COUGH) Skin Symptoms (Recalled from RN notes): No MS Symptoms (Recalled from RN notes): No Functional Status (Recalled from RN notes): NA - History of Present Illness Provider Complaint: c/o nonprod cough and sinus pressure. Started suddenly this morning. No treatment prior to arrival. and two kids also being seen today. One with strep and two with flu. - Related Data Home Medications Medication Instructions Recorded Confirmed Atorvastatin Calcium [Atorvastatin 20 mg PO DAILY 08/18/17 09/11/17 20mg Tab] Cyclobenzaprine HCl [Flexeril 10mg 10 mg PO TID 08/18/17 09/11/17 tablet] Omeprazole [Omeprazole 40mg 40 mg PO DAILY 08/18/17 09/11/17 Capsule] Sertraline HCl [Zoloft] 150 mg PO DAILY
--- NOTE | 2017-09-11 18:58 | ED_ITS ---
[facility] [place] Disposition Clinical Impression: Influenza-like illness, Exposure to influenza Disposition: Home, Self-Care Condition on Discharge: Good Instructions: DI for Influenza -- Adult Additional Instructions: * Start Tamiflu today if you are going to take it. Discussed risks, side effects , risk of allergic reaction, and possible benefits. We even discussed hallucinations and uncontrollable fevers. still wants tamiflu. Encouraged to monitor closely.. * Lots of rest * Increase fluids, water, gatorade, powerade, pedialyte if infant/toddler/child * Monitor Temp. Tylenol every 4 hours as needed no more then 5 times a day or 4000mg in 24 hours and/or ibuprofen every 6 hours as needed no more then 3200mg in 24 hours (as long as your primary care doctor has told you that it is ok to take both) for fever/aches/pain. ER if fever no less than 101 despite tylenol and Ibuprofen * Bromfed may cause drowsiness. Know how it effects you (or your child) before driving, caring for small children, or sending your child to school. No other antihistamines/allergy medications while taking bromfed. * You (or your child) are contagious until no fever, aches, chills x 24 hours without medication for symptoms. * * Per hospital policy, Your throat swab was sent for culture. Those results are typically sent to your primary care. Be sure to follow up in 2-3 days if no improvement so they can review those results and treat if necessary. If you don' t have primary care, I recommend you get one but in the mean time, you will have to return to a walk in clinic. Prescriptions: Brompheniramine/Pseudoephed/Dm [Bromfed DM Cough Syrup 5mL] 10 ml PO QID PRN # 240 ml PRN Reason: Cough Oseltamivir Phosphate [Tamiflu 75mg Capsule] 75 mg PO BID #10 cap Referrals: Artur Wilson MD [Primary Care Provider] - (Follow up IMMEDIATELY for new or worsening symptoms, improvement followed by suddenly feeling worse OR no noticeable improvement over the next 72 hours. 911 for difficulty breathing) Time of Disposition: 18:57 Medical Decision Making - Abraham Inquiry Pt receiving controlled substance: No Vital Signs: 09/11/17 18:15 09/11/17 19:06 Temperature 99.3 F 99.1 F Temperature Source Oral Pulse Rate 86 Pulse Rate [Right Radial] 91 H Respiratory Rate 18 18 Blood Pressure 135/82 Blood Pressure [Right Arm] 136/84 Blood Pressure Mean [Right Arm] 101 Blood Pressure Position [Right Arm] Sitting 02 Sat by Pulse Oximetry 97 Oxygen Delivery Method Room Air Room Air - Lab Data Lab results reviewed: Yes: I reviewed the patient's lab results. Lab Results 09/11/17 18:38: Influenza Type A Ag Negative, Influenza Type B Ag Negative, Strep Scn Rapid Clinic Negative Orders (Tests/Meds): ORDERS Category Date Time Status Strep Screen Confirmation Stat Micro 09/11/17 18:38 Received [facility] [place] HPI - General Stated complaint: cough Time Seen by Provider: 09/11/17 18:00 Mode of Arrival: Family Vehicle Source of Information: Patient Limitations: No Limitations Description of Symptoms (Recalled from Triage Doc. by RN): COUGH AND SINUS PRESSURE HEENT Symptoms (Recalled from RN notes): Yes (SINUS PRESSURE) Resp Symptoms (Recalled from RN notes): Yes (COUGH) Skin Symptoms (Recalled from RN notes): No MS Symptoms (Recalled from RN notes): No Functional Status (Recalled from RN notes): NA - History of Present Illness Provider Complaint: c/o nonprod cough and sinus pressu
[2017-09-11 19:06] VITALS: BP 135/82; PULSE 86; RESP 18; TEMP 37.3; O2SAT 100
== END 2017-09-11 19:08 | disposition home or self-care (01) ==
PROVIDERS: Emergency Provider Nurse Practitioner Family; Family Provider Emergency Medicine; PCP Emergency Medicine
DX: J11.1 Influenza due to unidentified influenza virus with other respiratory manifestations (principal); K21.9 Gastro-esophageal reflux disease without esophagitis; E78.5 Hyperlipidemia, unspecified
CPT/HCPCS: 87804; 87880; 99202

== ENCOUNTER → 2018-04-01 13:40 | Outpatient (CLI) | payer OTHER, SELFPAY ==
[2018-04-03 07:30] LABS: H. pylori Breath Test Negative (Negative)
== END ==
PROVIDERS: PCP Emergency Medicine; Visit Provider Emergency Medicine
DX: R11.0 Nausea (principal)
CPT/HCPCS: 83013

== ENCOUNTER → 2018-07-23 17:43 | Outpatient (CLI) | payer OTHER, SELFPAY ==
[2018-07-23 20:11] LABS: Amphetamine/Metha Screen,Urine Negative ng/mL (<1000); Barbiturates Screen,Urine Negative ng/mL (<200); Benzodiazepines Screen,Urine Negative ng/mL (<200); Cannabinoid Screen,Urine Negative ng/mL (<50); Cocaine Screen,Urine Negative ng/mL (<300); Methadone Screen,Urine Negative ng/mL (<300); Opiate Screen,Urine Negative ng/mL (<300); Phencyclidine Screen,Urine Negative ng/mL (<25)
== END ==
PROVIDERS: Visit Provider Nurse Practitioner Family
DX: J02.9 Acute pharyngitis, unspecified (principal); Z79.899 Other long term (current) drug therapy
CPT/HCPCS: 80305

== ENCOUNTER → 2019-06-10 12:57 | Outpatient (CLI) | payer OTHER, SELFPAY ==
--- NOTE | 2019-06-10 13:01 | US_ITS ---
PROCEDURE: US TESTICULAR CLINICAL INDICATION: RT GROIN PAIN Right testicular pain COMPARISON: No exams were available for comparison FINDINGS: Right testicle is 4.4 x 2 x 2.6 cm. There is homogeneous echogenicity. Blood flow noted. No testicular mass evident. The epididymis is somewhat hyperechoic with heterogeneous echogenicity and mildly enlarged. The left testicle is 4.8 x 2.3 x 2.7 cm. No mass evident. There is homogeneous echogenicity with internal blood flow in unremarkable appearing epididymis. No hydrocele or spermatocele or varicocele. IMPRESSION: Heterogeneous echogenicity of the right epididymis with mild enlargement suggesting chronic epididymitis otherwise negative Dictated by: Pedro Gomez MD 06/10/2019 16:28 Electronically signed by Pedro Gomez MD in [place] 06/10/2019 16:28
== END ==
PROVIDERS: PCP Emergency Medicine; Visit Provider Surgery
DX: R10.31 Right lower quadrant pain (principal); M54.9 Dorsalgia, unspecified
CPT/HCPCS: 76870

== ENCOUNTER → 2019-07-10 09:54 | Outpatient (CLI) | payer BC, SELFPAY ==
--- NOTE | 2019-07-10 09:56 | CA_ITS ---
APPROVED REPORT EXAM: Comprehensive 2D, Doppler, and color-flow Echocardiogram Ordnance Engineering Technician: Laurence Justin RT(R) Ht: 6 ft 0 in Wt: 194lbs BSA: 2.10 BP: 117/61 mmHg Indications: SOB, Palpitations, fatigue, HTN, GERD, hyperlipidemia 2D Dimensions LVOT 2.11 cm (M/F) 1.5-2.5 M-Mode Dimensions RVDd 1.76 cm (0.9-2.6) LVDd 4.90 cm (3.5-5.7) LVDs 3.39 cm (3.5-5.7) IVSd 1.00 cm (0.6-1.1) PWd 0.82 cm (0.6-1.1) EF (Teich) 58.20% FS 30.80% EDV (Teich) 112.80 mL ESV (Teich) 47.10 mL LV Diastology E/A Ratio 1.54 Mitral Valve MV A Velocity 44.00 (40-130 cm/s) Left Ventricle Left atrium is normal size, left ventricle is normal size, left ventricle wall thickness is upper limit of the normal, there is preserved left ventricular systolic function, visually estimated ejection fraction 55% with no regional wall motion abnormality. Right Ventricle Right atrium right ventricular normal size and contractility. Aortic Valve Aortic valve is grossly normal, there is no aortic stenosis or aortic insufficiency. Mitral Valve Mitral valve is grossly normal, there is mild mitral regurgitation. Tricuspid Valve Tricuspid valve is grossly normal, there is mild tricuspid regurgitation, calculated right ventricular systolic pressure is within normal range. Pulmonic Valve Pulmonic valve is poorly visualized. Great Vessels Aortic root is normal size. Pericardium No significant pericardial effusion noted. Conclusion 1. Normal left ventricular size, preserved left ventricular systolic function, visually estimated ejection fraction 55% with no regional wall motion abnormality, diastolic parameters are within normal range. 2. Mild mitral and tricuspid regurgitation. 3. No significant pericardial effusion noted. Electronically signed by : Mario Blanco, 07/11/2019 19:14:18
--- NOTE | 2019-07-10 09:56 | CA_ITS ---
APPROVED REPORT Exam: Exercise Treadmill Technologist: Alona Colbert, Ht: 6 ft 0 in Wt: 194 lbs BSA: 2.10 m2 HR: 72 bpm BP: 130/81 mmHg Rhythm: NORMAL SINUS RHYTHM Medical History Medical History: Hyperlipidemia Medications: Omeprazole,,,,, Metoprolol,,,,, Trazadone,,,,, Lexapro,,,,, Flomax,,,,, Atorvastatin,,,,, Flexeril,,,,, ZYRTEC,,,,, Famotidine,,,,, LoraTADINE,,,,, Ambien,,,,, LanoPRAZOLE,,,,, Allergies: NKA Cardiac Risk Factors: Hyperlipidemia, FHX of CAD Stress Test Details Test: Luis Daniel HR Resting HR: 94 bpm Max Heart Rate (APMHR): 176 bpm Max HR Achieved: 170 bpm Target HR (85% APMHR): 149 bpm % of APMHR: 96 Recovery HR: 133 bpm BP Resting BP: 132.0/79.0 mmHg Max BP: 153.0/82.0 mmHg Recovery BP: 136.0/80.0 mmHg ECG Resting ECG: NORMAL SINUS RHYTHM Clinical Reason for Termination: Dyspnea Exercise duration: 09:00 min Highest Stage Achieved: Exercise capacity: 10.1 METs Stress ECG Conclusion PATIENT EXERCISED 9:00 WITH MAX HEART RATE 170 BPM WHICH IS 113% OF PM FOR AGE. METS = 10.1. TEST STOPPED DUE TO SOA. NO CHEST PAIN. NO ARRHYTHMIAS/ECTOPY. <1.5MM ST SEGMENT CHANGES. NEGATIVE TEST Test Summary Stage 3 . . . . . . . Stage held REST . . . . . . . Sitting REST 10:19 0.0 0.0 94 . 132/ 79 . . Stage 1 01:00 10.0 1.7 108 . . . . Stage 1 02:00 10.0 1.7 114 . . . . Stage 1 03:00 10.0 1.7 115 . 142/ 80 . . Stage 2 01:00 12.0 2.5 122 . . . . Stage 2 02:00 12.0 2.5 132 . 152/ 82 . . Stage 2 03:00 12.0 2.5 143 . 152/ 82 . . Stage 3 01:00 14.0 3.4 152 . . . . Stage 3 . . . . . . . Cardiolite injected Stage 3 02:00 14.0 3.4 162 . . . . Stage 3 . . . . . . . Stage held Stage 3 . . . . . . . Stage resumed Stage 3 03:00 14.0 3.4 169 . . . Stop exercise at 09:00 RECOVERY 01:00 0.0 0.0 155 . . . . RECOVERY 02:00 0.0 0.0 142 . . . . RECOVERY 03:00 0.0 0.0 122 . . . . RECOVERY 04:00 0.0 0.0 123 . 143/ 77 . . RECOVERY 05:00 0.0 0.0 117 . 153/ 82 . . RECOVERY 06:00 0.0 0.0 119 . 153/ 82 . . RECOVERY 07:00 0.0 0.0 113 . 153/ 82 . . RECOVERY 08:00 0.0 0.0 114 . 153/ 82 . . RECOVERY 09:00 0.0 0.0 0 . 153/ 82 . . RECOVERY 10:00 0.0 0.0 0 . 153/ 82 . . RECOVERY 10:32 0.0 0.0 0 . 153/ 82 . . Electronically signed by : Mario Blanco, 07/11/2019 18:39:40
--- NOTE | 2019-07-10 10:25 | NM_ITS ---
APPROVED REPORT Exam: Nuclear Stress Test Procedure: Patient exercised on Luis Daniel protocol 9:00 minutes and sec, resting heart rate 79 bpm, resting blood pressure 130/81 mmHg, with exercise maximum heart rate achived was 170 bpm which is Greater than 85 % of the maximum predicted heart rate and blood pressure was 152/80 mmHg. Patient has GERD exercise capacity, achieved 12.3 METs of workload on treadmill, the blood pressure response to exercise was Adequate. C/O SOB Electrocardiogram Resting electrocardiogram showed sinus rhythm, with exercise there is less than 1.[address] segment depression noted from the baseline EKG. The EKG portion of the exercise Myoview is negative for ischemia. Cardiac Stress and Resting SPECT Images: Cardiac Stress and Resting SPECT images were obtained using technetium 99m Myoview 31.7 mCi stress and 10.98 mCi at rest. Gated SPECT for analysis of segmental wall motion and calculation of the ejection fraction also done. Cardiac stress and resting SPECT images show uniform myocardial activity without segmental perfusion abnormality, computer derived ejection fraction is 64% with no regional wall motion abnormality, right ventricle is normal size and contractility. Conclusion: 1. The EKG portion of the exercise Myoview is negative for ischemia, patient has good exercise capacity achieved 12.3 mets of workload on treadmill, the blood pressure response to exercise was adequate, there was no exercise-induced chest discomfort. 2. No scintigraphic evidence of reversible ischemia seen, computer derived ejection fraction is 64% with no regional wall motion abnormality, right ventricle is normal size and contractility. 3. Normal exercise Myoview study. Electronically signed by : Mario Blanco, 07/11/2019 18:46:13
--- NOTE | 2019-07-10 14:36 | HMH.ITSHM ---
Current Home Medications as stated by this patient Mickey Hernandez JR or new accounts representative. []
--- NOTE | 2019-07-10 14:36 | HMH.ITSHM ---
Current Home Medications as stated by this patient Mickey Hernandez JR or b2b sales representative. []METOPROLOL AMBIEN TRAZADONE FLOMAX LORATADINE ATORVASTATIN OMEPRAZOLE LANOPRAZOLE FAMOTIDINE LEXAPRO ZYRTEC FLEXIRIL
== END ==
PROVIDERS: PCP Emergency Medicine; Visit Provider Nurse Practitioner Family
DX: R07.9 Chest pain, unspecified (principal); E78.5 Hyperlipidemia, unspecified
CPT/HCPCS: 78452; 93017; 93306; A9502

== ENCOUNTER → 2019-11-03 15:30 | Outpatient (POV) | payer BC, SELFPAY ==
[2019-11-03 15:37] VITALS: BP 152/85; PULSE 85; RESP 18; TEMP 36.8; O2SAT 99; BMI 25.0
--- NOTE | 2019-11-04 12:34 | HMH.PMCON ---
Assessment and Plan (1) Sacroiliitis Current visit: Yes Status: Chronic Category: Medical Code(s): M46.1 - Sacroiliitis, not elsewhere classified - Assessment and plan all Dx Assessment and Plan for all problems:: We will move forward with a right SI joint injection for him given his symptoms I believe it would be beneficial for him. Patient's been instructed to call the office if he has any issues prior to his next appointment. I will follow-up with him after his injection reassess his symptoms at that time. Dr. Velez has reviewed this note and agrees with this plan of care. This note was dictated using voice recognition software and may contain errors or omissions HPI - Data of Consult Consult date: 11/03/19 Requesting Physician: Meg Borrego APRN Primary Care Provider: Artur Wilson MD - Consult Narrative Reason for consult: Back pain History of present illness: Mr. Hernandez is a 44 year old male who presents today for consultation in regards to his low back pain. Feels that the pain is across his belt line on the right side. Patient has difficulty from going from a sitting position to standing position. Patient has a rating of 5 out of 10 for his pain. Nothing increases his pain and nothing truly decreases his pain. The pain does radiate into his right groin. Patient does have a positive Chava test Tyson's test and SI joint compression test. Patient and I discussed SI joint pain. CC: Meg Borrego APRN [facility] History I have reviewed the patient's past medical history: Yes Medical History: Reports:: Diabetes Mellitus Type 2, Gastroesophageal Reflux Disease(GERD), Hyperlipidemia, Internal Pacemaker Denies:: Cancer, Chronic Obstructive Pulmonary Disease (COPD), Diabetes Mellitus Type 1, MRSA, Seizures *Have you ever received a pneumonia vaccine?: Yes *Have you received a flu vaccine this season?: Yes Other Medical History: Reports: Other. Denies: Blood Transfusion Reaction Laterality Cases: Bilateral: Tonsillectomy Other Surgeries: Yes: Appendectomy, Pacemaker, Other Amputation: No Fractures: Yes - *Social History Smoking Status: Never smoker Alcohol Intake: never Substance Use Type: denies use *Occupational Status:: other Housing: house Household Members: other *Travel in the last 8 weeks: None Family Hx:: Unable to obtain Review of Systems - Review of Systems ROS General: no recent weight change, no fever, no sleep disturbances Respiratory: no cough, no shortness of air, no recurring pulmonary infections Cardiovascular/Peripheral Vascular: No chest pain, No palpitations, no edema, no shortness of breath. Gastrointestinal: no new onset incontinence, normal bowel movements reported Genitourinary: no new onset incontinence Musculoskeletal: SI joint pain on the right side Psychiatric: normal mood/ affect Neurological: [denies new onset weakness in extremities], [denies new onset balance issues] Meds Home Medications Medication Instructions Recorded Confirmed Type epinephrine 0.3 mg/0.3 mL 0.3 mg IM ONCE PRN #1 auto.injct 09/30/18 10/15/19 Rx injection, auto-injector Cetirizine HCl 10 mg PO DAILY 01/26/19 10/15/19 History trazodone 150 mg tablet 150 mg PO QHS #90 tab 05/19/19 10/15/19 Rx aspirin 81 mg tablet,delayed 81 mg PO DAILY #30 tab 07/02/19 10/15/19 Rx release loratadine 10 mg tablet mg PO DAILY tab 07/02/19 10/15/19 History famotidine 40 mg tablet See Rx Instructions .ROUTE 07/15/19 10/15/19 Rx .COMPLEX #90 each oxybutynin chloride 10 mg mg PO 07/23/19 10/15/19 History tablet,extended release 24 hr escitalopram oxalate 20 mg tablet See Rx Instructions .ROUTE 08/25/19 10/15/19 Rx .COMPLEX #90 each cyclobenzaprine 10 mg tablet See Rx Instructions .ROUTE 08/29/19 10/15/19 Rx .COMPLEX #90 each atorvastatin 10 mg tablet 10 mg PO DAILY #90 tab 09/12/19 10/15/19 Rx tamsulosin 0.4 mg capsule 0.8 mg .ROUTE BID #180 cap 09/19/19 10/15/19 Rx z
== END ==
PROVIDERS: PCP Emergency Medicine; Visit Provider Clinical Nurse Specialist Family Health
DX: M46.1 Sacroiliitis, not elsewhere classified (principal)
CPT/HCPCS: 99202

== ENCOUNTER 2019-11-18 13:55 | Day surgery (SDC) | payer BC, SELFPAY ==
[2019-11-18 14:03] VITALS: BP 129/73; PULSE 87; RESP 18; TEMP 37; O2SAT 95; BMI 24.8
--- NOTE | 2019-11-18 14:24 | P.PCN_ITS ---
- Procedure Date: 11/18/19 Time: 14:24 Anesthesiologist:: Meg Borrego APRN Complications:: None Pre-procedure Diagnosis:: Right SI joint pain, sacroiliitis Post-procedure Diagnosis:: Same Indications for Procedure:: Patient is a pleasant 44-year-old white male who presents today for a right SI joint injection. Patient has pain along the belt line of his right side. Is difficult going from sitting to standing position he rates his pain a 7 out of 10 today. Nothing increases his pain and nothing truly decreases his pain. Pain does radiate into his right groin patient does have a positive Chava test Tyson's test and SI joint compression test patient and I discussed SI joint injection however he is allergic to cortisone and prednisone. We will do this as a diagnostic for potential RFA or corner lock procedure. Physical Exam General: Alert and oriented x3, no acute distress, pleasant and cooperative, [on room air] Lungs: Resps E/U, Symmetrical chest expansion, Eyes: PERRL Musculoskeletal: Flexion and extension of lumbar spine somewhat guarded secondary to pain, deep tendon reflexes normal, strength in upper and lower extremities [5/5], slightly antalgic gait noted Neurological: speech clear, medical billing service equal, no gross sensory deficits Procedure Details:: Informed consent was obtained and the risks and benefits of the procedure were explained to the patient. Patient was taken to the procedure room. Patient was placed prone on the procedure table. The [right] hip was prepped using ChloraPrep as a cleansing solution. The skin and subcutaneous tissues were anesthetized using lidocaine. Using fluoroscopic guidance I placed a 22-gauge spinal needle into the inferior aspect of the [right] SI joint. After this I injected 5 mL bupivacaine 0.25% into the [right] SI joint. The patient tolerated the procedure well with no complication. Plan and Disposition:: We will see the patient back in the office reassess his symptoms at that time post injection he was feeling better. It was having difficulty discerning the injection site from his original pain. We will discuss potential RFA or corneal walk if this was beneficial. Dr. Velez has reviewed this note and agrees with this plan of care. This note was dictated using voice recognition software and may contain errors or omissions
[2019-11-18 14:28] VITALS: BP 125/85; PULSE 85
[2019-11-18 14:29] VITALS: BP 120/78; PULSE 85; RESP 18; O2SAT 99
[2019-11-18 14:35] VITALS: BP 113/72; PULSE 82; RESP 18; O2SAT 95
== END 2019-11-18 14:46 | disposition home or self-care (01) ==
LOC: SC.PAINP 13:57
PROVIDERS: PCP Emergency Medicine; Visit Provider Clinical Nurse Specialist Family Health
DX: M46.1 Sacroiliitis, not elsewhere classified (principal); Z88.8 Allergy status to other drugs, medicaments and biological substances; Z95.0 Presence of cardiac pacemaker; E11.9 Type 2 diabetes mellitus without complications; E78.5 Hyperlipidemia, unspecified; K21.9 Gastro-esophageal reflux disease without esophagitis; Z79.82 Long term (current) use of aspirin; Z79.899 Other long term (current) drug therapy; Z79.4 Long term (current) use of insulin
CPT/HCPCS: 27096; G0260; Q9966

== ENCOUNTER → 2019-12-09 11:09 | Outpatient (POV) | payer BC, SELFPAY ==
[2019-12-09 11:17] VITALS: BP 141/72; PULSE 87; RESP 18; O2SAT 99; BMI 24.5
--- NOTE | 2019-12-09 12:21 | HMH.PAINSOAP ---
[facility] Pain Management SOAP Note Subjective:: Patient is a pleasant 44-year-old white male presents today for follow-up after right diagnostic SI joint injection. Patient has pain along his belt line of his right side. He has difficulty going from sitting to standing position he rates his pain a 7 out of 10 today. Pain does radiate into his groin he has a positive Chava test Tyson's test and SI joint compression test. Patient and I have discussed due to his allergy to cortisone which will be a diagnostic only injection. Patient got good relief after his injection for several hours. Patient states he got 80% relief with his injection. Patient and I had a long conversation in regards to options of treatment. Patient and I discussed the coronary lock procedure and was given information in regards to it. Patient has quite some concern about downtime. Patient asked about a neurotomy. Patient would like to try this prior to potential coronary lock procedure. ROS General: no recent weight change, no fever, no sleep disturbances Respiratory: no cough, no shortness of air, no recurring pulmonary infections Cardiovascular/Peripheral Vascular: No chest pain, No palpitations, no edema, no shortness of breath. Gastrointestinal: no new onset incontinence, normal bowel movements reported Genitourinary: no new onset incontinence Musculoskeletal: Right SI joint pain Psychiatric: normal mood/ affect, Neurological: [denies new onset weakness in extremities], [denies new onset balance issues] Objective:: Physical Exam General: Alert and oriented x3, no acute distress, pleasant and cooperative, [on room air] Lungs: Resps E/U, Symmetrical chest expansion, Eyes: PERRL Musculoskeletal: Flexion and extension of lumbar spine somewhat guarded secondary to pain, deep tendon reflexes normal, strength in upper and lower extremities [5/5], [abnormal gait noted] positive Chava test SI joint compression test and Laci's test on the right side. 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 We will move forward with this. I did give him information in regards to the corner lock to take home and review. I will follow-up with him after his RFA reassess his symptoms at that time. He is instructed to call the office if he has any issues prior to his next appointment. Dr. Velez has reviewed this note and agrees with this plan of care. This note was dictated using voice recognition software and may contain errors or omissions [facility] History I have reviewed the patient's past medical history: Yes Medical History: Reports:: Gastroesophageal Reflux Disease(GERD), Hyperlipidemia, Hypertension, Internal Pacemaker Denies:: Cancer, Chronic Obstructive Pulmonary Disease (COPD), Diabetes Mellitus Type 1, Diabetes Mellitus Type 2, MRSA, Seizures *Have you ever received a pneumonia vaccine?: Yes *Have you received a flu vaccine this season?: Yes Other Medical History: Reports: Other. Denies: Blood Transfusion Reaction Laterality Cases: Bilateral: Tonsillectomy Other Surgeries: Yes: Appendectomy, Pacemaker, Other Amputation: No Fractures: Yes - *Social History Smoking Status: Never smoker Alcohol Intake: never Substance Use Type: denies use *Occupational Status:: other Housing: house Household Members: other *Travel in the last 8 weeks: None Family Hx:: Unable to obtain
== END ==
PROVIDERS: PCP Emergency Medicine; Visit Provider Clinical Nurse Specialist Family Health
DX: M46.1 Sacroiliitis, not elsewhere classified (principal)
CPT/HCPCS: 99212

== ENCOUNTER → 2020-01-09 12:48 | Day surgery (SDC) | payer BC, SELFPAY ==
[2020-01-09 12:57] VITALS: BP 133/72; RESP 18; TEMP 36.7; O2SAT 95
[2020-01-09 13:26] VITALS: BP 124/88; PULSE 85; RESP 18; O2SAT 99
--- NOTE | 2020-01-09 13:26 | HMH.PMPROC ---
- Procedure Date: 01/09/20 Time: 13:26 Anesthesiologist:: Janes Velez MD Complications:: None Pre-procedure Diagnosis:: Sacroiliitis Post-procedure Diagnosis:: Same Indications for Procedure:: This patient is a pleasant 44-year-old white male who we have been treating for right-sided sacroiliitis. He did well with previous diagnostic SI joint injections. He got temporary pain relief. He would like to proceed to radiofrequency ablation of the right SI joint. He is failed all previous conservative therapy including physical therapy, oral medications and injections. We will do a right SI joint RFA today to help him with long-term relief of his pain symptoms. Procedure Details:: Right SI joint RFA Informed consent was obtained risk and benefits of the procedure were explained to the patient. Patient was taken to the procedure room the right SI joint was prepped using ChloraPrep. I placed 20-gauge RF needles into the right SI joint. We underwent sensory stimulation. There is good sensory stimulation at 0.8 V. We underwent motor stimulation. There was no motor stimulation at 3 V. We anesthetized the right SI joint with lidocaine and Depo-Medrol 40 mg. We then burned each of the 4 needles encompassing the right SI joint at 80 ?C for 4 minutes. Patient tolerated the procedure well with no complications. Plan and Disposition:: We will follow-up with him and 2 weeks. Will reevaluate his symptoms at that time.
[2020-01-09 13:27] VITALS: BP 135/88; PULSE 89; RESP 18; O2SAT 99
[2020-01-09 13:35] VITALS: BP 135/78; PULSE 79; RESP 18; TEMP 36.7; O2SAT 98
== END ==
PROVIDERS: PCP Emergency Medicine; Visit Provider Anesthesiology
DX: M46.1 Sacroiliitis, not elsewhere classified (principal); I10 Essential (primary) hypertension; F32.9 Major depressive disorder, single episode, unspecified; G47.00 Insomnia, unspecified; N40.0 Benign prostatic hyperplasia without lower urinary tract symptoms; E78.5 Hyperlipidemia, unspecified; K21.9 Gastro-esophageal reflux disease without esophagitis; M19.90 Unspecified osteoarthritis, unspecified site; Z87.19 Personal history of other diseases of the digestive system; Z90.89 Acquired absence of other organs; Z88.8 Allergy status to other drugs, medicaments and biological substances; Z79.899 Other long term (current) drug therapy
CPT/HCPCS: 27096; G0260; J1040

== ENCOUNTER → 2020-01-29 13:05 | Outpatient (POV) | payer BC, SELFPAY ==
[2020-01-29 13:09] VITALS: BP 138/72; PULSE 71; RESP 18; O2SAT 98; BMI 24.3
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
== END ==
PROVIDERS: PCP Emergency Medicine; Visit Provider Clinical Nurse Specialist Family Health
DX: M54.5 Low back pain (principal); M25.551 Pain in right hip; R10.31 Right lower quadrant pain
CPT/HCPCS: 99212

== ENCOUNTER → 2020-02-26 14:27 | Outpatient (POV) | payer BC, SELFPAY ==
[2020-02-26 14:32] VITALS: BP 143/74; PULSE 72; RESP 18; TEMP 36.1; O2SAT 96; BMI 24.4
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
== END ==
PROVIDERS: PCP Emergency Medicine; Visit Provider Clinical Nurse Specialist Family Health
DX: M54.5 Low back pain (principal); M54.16 Radiculopathy, lumbar region; R10.31 Right lower quadrant pain; M79.604 Pain in right leg
CPT/HCPCS: 99212

== ENCOUNTER 2020-03-08 15:11 | Outpatient (RCR) | payer BC, SELFPAY ==
--- NOTE | 2020-03-08 16:02 | HMH.PTOPEV ---
PT Outpatient Evaluation Rehab PT Outpatient Evaluation Start: 03/08/20 15:32 Freq: Status: Active Protocol: Document 03/08/20 15:32 FAUSTINO (Rec: 03/08/20 16:01 FAUSTINO [id number]) Electronically Signed By Deny Geiger, PT 03/08/20 15:32 Outpatient Therapy Subjective History Subjective History Pt reports h/o chronic LBP/R LE s/s for ~1.5 yrs. Pt reports chronic R glut/groin area pain, and underwent ' burning of those nerves, but they said they must not of hit the right ones because I'm hurting worse now'. Pt reports ~1month ago rhizotomy-type procedure has increased s/s presentation, now reports R sided LBP with severe radicular s/s into R groin and down R HSmm area to knee level. Chief Complaint Pain,Spasms,Stiff,Paresthesia Symptom Type Ache,Throb,Sharp,Dull,Stabbing ,Burning Symptoms Relieved By Rest/Positioning Symptoms Aggravated By Standing,Bending/Stooping, Physical Activity,Twisting, Walking,Lifting Prior Functional Limitations Lifting,Housework,Standing, Walking,Bending/Stooping Current Functional Limitations Lifting,Housework,Standing, Walking,Bending/Stooping Symptom Description Constant but Variable Level of pain today (0-10) 8 Pain scale - at its best (0-10) 8 Pain scale - at its worst (0-10) 10 Lumbopelvic Eval Posture Thoracic Spine Posture Standing Position Neutral Lumbar Spine Posture Standing Position Neutral Assistive device Assistive Devices None / NA Gait Observation General Gait Pattern Observation Antalgic Gait Palapation tenderness left lumbar spinal tenderness Yes: 1-2/4 paraspinal tenderness Yes: 2/4 Lumbar/Sacral Palpation Findings Tenderness right lumbar spinal tenderness Yes: 3/4 paraspinal tenderness Yes: 3/4 buttock tenderness Yes: 3/4 Lumbar/Sacral Palpation Findings Tenderness,Spasm,Trigger Point ,Muscle Guarding Accessory Movement L-spine Vertebrae Accessory Movements [place] [facility] [place] that Elicit Symptoms L3 right L4 right L5 right Range of Motion Lumbar Spine Active Flexion Range of 0-40 Motion (degrees)
== END 2020-03-08 16:20 | disposition home or self-care (01) ==
LOC: PT 15:11
PROVIDERS: PCP Emergency Medicine; Visit Provider Clinical Nurse Specialist Family Health
DX: M54.5 Low back pain (principal)
CPT/HCPCS: 97010; 97014; 97035; 97163; G0283

== ENCOUNTER → 2020-03-18 13:07 | Outpatient (POV) | payer BC, SELFPAY ==
[2020-03-18 13:21] VITALS: BP 125/74; PULSE 71; RESP 18; O2SAT 99; BMI 24.3
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
== END ==
PROVIDERS: PCP Emergency Medicine; Visit Provider Clinical Nurse Specialist Family Health
DX: M54.5 Low back pain (principal); M54.16 Radiculopathy, lumbar region
CPT/HCPCS: 99212

== ENCOUNTER → 2020-04-26 08:29 | Outpatient (POV) | payer BC, SELFPAY ==
[2020-04-26 08:39] VITALS: BP 133/74; PULSE 74; RESP 18; O2SAT 98; BMI 24.9
--- NOTE | 2020-04-26 08:44 | HMH.PAINSOAP ---
[facility] Pain Management SOAP Note Subjective:: 44-year-old white male who presents today for follow-up. Patient's been denied his lumbar MRI. Patient has undergone conservative treatment for over 3 months. He has had injective therapy along with some physical therapy and medication therapy. Patient has continued to have quite a bit of pain he rates his pain 8 out of 10. He was started on Robaxin and diclofenac which did help somewhat. Patient is continuing a home stretching program. He is on anti-inflammatories. Patient's pain is in his back radiating into his right side. Patient currently waiting on his disability. ROS General: no recent weight change, no fever, no sleep disturbances Respiratory: no cough, no shortness of air, no recurring pulmonary infections Cardiovascular/Peripheral Vascular: No chest pain, No palpitations, no edema, no shortness of breath. Gastrointestinal: no new onset incontinence, normal bowel movements reported Genitourinary: no new onset incontinence Musculoskeletal: Back pain, leg pain Psychiatric: normal mood/ affect Neurological: [denies new onset weakness in extremities], [denies new onset balance issues] Objective:: Physical Exam General: Alert and oriented x3, no acute distress, pleasant and cooperative, [on room air] Lungs: Resps E/U, Symmetrical chest expansion, Eyes: PERRL Musculoskeletal: Flexion and extension of lumbar spine somewhat guarded secondary to pain, deep tendon reflexes normal, strength in upper and lower extremities [5/5], slightly antalgic gait noted Neurological: speech clear, 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 twice daily and diclofenac 75 mg 1 p.o. twice daily. We will try to approve get an approved lumbar MRI to help determine pathology. He may need a surgical consult or additional injective therapy after this. Dr. Velez has reviewed this note and agrees with this plan of care. This note was dictated using voice recognition software and may contain errors or omissions [facility] History I have reviewed the patient's past medical history: Yes Medical History: Reports:: Gastroesophageal Reflux Disease(GERD), Hyperlipidemia, Hypertension, Internal Pacemaker Denies:: Cancer, Chronic Obstructive Pulmonary Disease (COPD), Diabetes Mellitus Type 1, Diabetes Mellitus Type 2, MRSA, Seizures *Have you ever received a pneumonia vaccine?: No *Have you received a flu vaccine this season?: No Other Medical History: Reports: Other. Denies: Blood Transfusion Reaction Laterality Cases: Right: Other, Bilateral: Tonsillectomy Other Surgeries: Yes: Appendectomy, Pacemaker, Other Amputation: No Fractures: Yes - *Social History Smoking Status: Never smoker Alcohol Intake: never Substance Use Type: denies use *Occupational Status:: other Housing: house Household Members: spouse *Travel in the last 8 weeks: None Family Hx:: No significant family history
[2020-04-26 19:28] LABS: Basophils # 0.1 K/mm3 (0-0.2); Basophils % 0.7 % (0.1-2.0); Eosinophils # 0.1 K/mm3 (0.0-0.4); Eosinophils % 1.8 % (0.1-12.0); Hematocrit 47.9 % (42.0-52.0); Hemoglobin 15.8 g/dL (14.1-18.0); Lymphocytes # 2.8 K/mm3 (0.7-4.5); Mean Corpuscular HGB Conc 32.9 g/dL (31.8-35.4); Mean Corpuscular Hemoglobin 30.8 pg (27.0-31.2); Mean Corpuscular Volume 93.6 fl (80-94); Mean Platelet Volume 8.1 fl (7.4-10.4); Monocytes # 0.5 K/mm3 (0.1-1.0); Monocytes % 7.1 % (1.7-9.3); Neutrophils # 3.5 K/mm3 (1.8-7.8); Neutrophils % 50.3 % (37.0-80.0); Platelet Count 301 K/mm3 (142-424); Red Blood Count 5.12 M/mm3 (4.60-6.20); Red Cell Distribution Width 12.9 % (11.5-17.5)
[2020-04-26 19:39] LABS: Alanine Aminotransferase 26 U/L (12-78); Albumin Level 4.6 g/dl (3.5-5.0); Albumin/Globulin Ratio 1.5 (1.1-1.8); Alkaline Phosphatase 63 U/L (38-126); Anion Gap 15.7 mEq/L (5-15); Aspartate Amino Transferase 27 U/L (17-59); Bilirubin,Total 0.4 mg/dl (0.2-1.3); Blood Urea Nitrogen 26 mg/dl (9-20); Calcium 9.6 mg/dl (8.4-10.2); Carbon Dioxide 26 mmol/L (22.0-30.0); Chloride 106 mmol/L (98-107); Chol/HDL Ratio 5.8 (1-3.5); Cholesterol 220 mg/dl (140-200); Estimated Glomerular Filt Rate 72 ml/min (>60); GFR (African American) 88 ML/MIN (>60); Glucose 106 mg/dl (74-100); HDL Cholesterol 38 mg/dl (40-60); Potassium 4.7 mmoL/L (3.5-5.1); Sodium 143 mmol/L (136-145); Total Protein,Serum 7.6 g/dl (6.3-8.2); Triglycerides 370 mg/dl (30-150); VLDL Cholesterol 74 mg/dL (0-40)
[2020-04-26 19:52] LABS: Direct LDL Cholesterol 122.71 mg/dL (100-129)
[2020-04-26 19:56] LABS: 25-OH Vitamin D, Total 35.1 ng/mL (30-100)
[2020-04-26 19:59] LABS: T4 (Thyroxine) 7.8 ug/dl (5.53-11.0)
[2020-04-26 20:12] LABS: Thyroid Stimulating Hormone 0.78 uIU/mL (0.465-4.68)
== END ==
PROVIDERS: PCP Emergency Medicine; Visit Provider Clinical Nurse Specialist Family Health
DX: M54.16 Radiculopathy, lumbar region (principal); M12.88 Other specific arthropathies, not elsewhere classified, other specified site; Z68.25 Body mass index [BMI] 25.0-25.9, adult
CPT/HCPCS: 80053; 80061; 82306; 84436; 84443; 85025; 99212

== ENCOUNTER → 2020-04-26 18:06 | Outpatient (CLI) | payer BC, SELFPAY | PROVIDERS: Visit Provider Emergency Medicine | DX: S39.92XA Unspecified injury of lower back, initial encounter (principal); E55.9 Vitamin D deficiency, unspecified | CPT/HCPCS: 80053; 80061; 82306; 84436; 84443; 85025 ==

== ENCOUNTER → 2020-05-17 16:07 | Outpatient (CLI) | payer BC, SELFPAY ==
--- NOTE | 2020-05-17 | MR_ITS ---
PROCEDURE: MR LUMBAR SPINE WO CON CLINICAL INDICATION: LOW BACK PAIN Right-sided low back pain COMPARISON: [facility]/O MRI-L-SPINE W/O from 05/10/2016 TECHNIQUE: Standard multiplanar multiecho sequences are performed without contrast. 3-D MIP and myelographic images are also rendered and reviewed FINDINGS: There is normal alignment. Spinal cord ends at the L1 level. L1-L2: Unremarkable. L2-L3: Unremarkable. L3-L4: Unremarkable. L4-5 minimal bulging disc with mild facet ligamentum hypertrophy not significantly changed L5-S1: Unremarkable. No extruded herniated disc or canal stenosis. IMPRESSION: Minimal bulging disc at L4-5 with mild facet and ligamentum hypertrophy otherwise negative MRI of the lumbar spine overall not significantly changed. Dictated by: Pedro Gomez MD 05/19/2020 16:06 Pedro Gomez MD in [place] 05/19/2020 16:06
== END ==
PROVIDERS: PCP Emergency Medicine; Visit Provider Anesthesiology
DX: M54.5 Low back pain (principal)
CPT/HCPCS: 72148; 76376

== ENCOUNTER 2021-12-19 16:57 | Emergency (ER) | payer BC, SELFPAY ==
--- NOTE | 2021-12-19 17:05 | XR_ITS ---
PROCEDURE INFORMATION: Exam: XR Cervical Spine Exam date and time: 12/19/2021 5:04 PM Age: 46 years old Clinical indication: Neck pain; Additional info: Neck pain radiates down right shoulder/ arm TECHNIQUE: Imaging protocol: Radiologic exam of the cervical spine. Views: 2 or 3 views. COMPARISON: [facility] CT cervical spine wo con 01/26/2019 10:44 PM FINDINGS: Bones/joints: No acute fracture or subluxation. Mild disc space narrowing at C3-C4. Anterior spur at C6. Normal bone mineralization. Soft tissues: Unremarkable. IMPRESSION: Mild degenerative changes.
--- NOTE | 2021-12-19 17:22 | HMH.EDUTC ---
[facility] [place] Disposition Clinical Impression: Neck pain, Torticollis Disposition: Home, Self-Care Condition on Discharge: Good Instructions: Torticollis, DI for Torticollis Additional Instructions: Go home and rest. It would be best if you rested tomorrow too. No heavy lifting. No twisting. Take the oral medications as directed. The muscle relaxer (cyclobenzaprine--Flexeril) will make you drowsy, so don't drive or operate heavy machinery after taking it. Don't start the oral steroids (medrol dose pack) until tomorrow, since you had the shots in here today. Follow up with your regular doctor. GO TO THE ER FOR ANY WORSENING SYMPTOMS OR CONCERN, ESPECIALLY BOWEL OR BLADDER ISSUES, SADDLE AREA NUMBNESS, FEVER, ETC Prescriptions: Cyclobenzaprine HCl [Cyclobenzaprine 10mg Tab] 10 mg PO BIDP PRN #20 tab PRN Reason: Muscle Spasm Transmission Status: Received by [id number] methylPREDNISolone [Medrol] 4 mg PO DIRECTED 6 Days #21 packet Transmission Status: Received by [id number] Referrals: Sheron Jewell PA [Primary Care Provider] - Medical Decision Making - Medical Records Medical records reviewed: No: I reviewed the patient's medical records. - Abraham Inquiry Pt receiving controlled substance: No Vital Signs: 12/19/21 17:50 12/19/21 17:52 Temperature 98.7 F 98.7 F Temperature Source Oral Pulse Rate 94 H Pulse Rate [Left] 94 H Respiratory Rate 18 18 Blood Pressure 122/82 Blood Pressure [Right Arm] 122/82 Blood Pressure Mean [Right Arm] 95 02 Sat by Pulse Oximetry 97 Orders (Tests/Meds): ED MEDICATIONS Discontinued Medications Generic Name Dose Route Start Last Admin Trade Name Freq PRN Reason Stop Dose Admin Dexamethasone Sodium Phosphate 8 mg 12/19/21 17:30 12/19/21 17:47 Dexamethasone 4mg/Ml 1ml Vial IM 12/19/21 17:31 8 mg ONCE ONE Administration Ketorolac Tromethamine 60 mg 12/19/21 17:30 12/19/21 17:46 Ketorolac 60mg/2ml Vial IM 12/19/21 17:31 60 mg ONCE ONE Administration - Radiology Data #1 Image(s): C-Spine Image Reviewed: Yes I reviewed the patient's radiology image, Yes I have reviewed radiologist's interpretation Preliminary Findings: No Fracture Seen PROCEDURE INFORMATION: Exam: XR Cervical Spine Exam date and time: 12/19/2021 5:04 PM Age: 46 years old Clinical indication: Neck pain; Additional info: Neck pain radiates down right shoulder/ arm TECHNIQUE: Imaging protocol: Radiologic exam of the cervical spine. Views: 2 or 3 views. COMPARISON: [facility] [place] cervical spine wo con 01/26/2019 10:44 PM FINDINGS: Bones/joints: No acute fracture or subluxation. Mild disc space narrowing at C3-C4. Anterior spur at C6. Normal bone mineralization. Soft tissues: Unremarkable. IMPRESSION: Mild degenerative changes. 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 Since then he has had pain with turning his neck to the right. He also has had pain that radiates down his right arm at times. He denies any other complaints. - Related Data Home Medications Medication Instructions Recorded Confirmed cetirizine 10 mg tablet 10 mg PO DAILY PRN 11/22/21 11/22/21 Previous Rx's Medication Instructions Recorded mirabegron 50 mg tablet,extended 50 mg PO DAILY #90 tab 01/25/21 release 24 hr buspirone 5 mg tablet 5 mg PO TID #90 tab 03/24/21 metoprolol succinate 25 mg 25 mg PO DAILY #90 tab 04/18/21 tablet,extended release 24 hr quetiapine 25 mg tablet See Rx Instructions .ROUTE 07/20/21 .COMPLEX #90 tab aspirin 81 mg tablet,delayed See Rx Instructions .ROUTE 09/15/21 release .COMPLEX #90 tab ome
[2021-12-19 17:50] VITALS: BP 122/82; PULSE 94; RESP 18; TEMP 37.1; O2SAT 97; BMI 27.0
[2021-12-19 17:52] VITALS: BP 122/82; PULSE 94; RESP 18; TEMP 37.1
== END 2021-12-19 17:53 | disposition home or self-care (01) ==
PROVIDERS: Emergency Provider Nurse Practitioner Family; PCP Physician Assistant
DX: S13.4XXA Sprain of ligaments of cervical spine, initial encounter; X50.0XXA Overexertion from strenuous movement or load, initial encounter; Z79.82 Long term (current) use of aspirin; Z79.899 Other long term (current) drug therapy; Z88.8 Allergy status to other drugs, medicaments and biological substances; K21.9 Gastro-esophageal reflux disease without esophagitis; E78.5 Hyperlipidemia, unspecified; I10 Essential (primary) hypertension; Z95.0 Presence of cardiac pacemaker
CPT/HCPCS: 72040; 99212; G0463

== ENCOUNTER 2021-12-21 16:21 | Emergency (ER) | payer BC, SELFPAY ==
[2021-12-21 16:23] VITALS: BP 112/60; PULSE 86; RESP 16; TEMP 36.8; O2SAT 98; BMI 23.8
--- NOTE | 2021-12-21 16:41 | HMH.EDGENADL ---
ED Disposition Clinical Impression: Cervical strain, acute Qualifiers: Encounter type: initial encounter Qualified Code(s): S16.1XXA - Strain of muscle, fascia and tendon at neck level, initial encounter Injury to cervical nerve root Qualifiers: Encounter type: initial encounter Qualified Code(s): S14.2XXA - Injury of nerve root of cervical spine, initial encounter Disposition: Home, Self-Care Condition on Discharge: Fair Instructions: DI for Cervical Radiculopathy, DI for Cervical Muscle Strain Additional Instructions: You have been evaluated for neck injury, radicular pain. Please follow-up with your primary care doctor, Dr. Wilson in 24 to 48 hours for symptom recheck. Take anti-inflammatory medication like ibuprofen, naproxen, Excedrin. Continue Medrol Dosepak and muscle relaxers as needed. Use heat, stretching, strengthening exercises. To the emergency department at once for any new or worsening symptoms, pain, numbness, other concerns. Prescriptions: Hydrocod/Acet 5/325 mg [[place] 5/325mg tablet] 1 tab PO Q6HP PRN #6 tab PRN Reason: Severe Pain [id number] Ibuprofen [Ibuprofen 600mg Tablet] 600 mg PO Q8 #21 tab Transmission Status: Pending to [facility] Referrals: Artur Wilson MD [Primary Care Provider] - Time of Disposition: 17:24 - Critical Care Critical Care Time: No Attestation: On 12/21/21, the high probability of a clinically significant, sudden or life threatening deterioration of the following system(s) required my full and direct attention, intervention and personal management. The time I documented below is in addition to time spent performing reported procedures but includes the following listed in this critical care notation. Medical Decision Making - Medical Records Medical records reviewed: Yes: I reviewed the patient's medical records. - Abraham Inquiry Pt receiving controlled substance: No Vital Signs: 12/21/21 16:23 Temperature 98.2 F Temperature Source Oral Pulse Rate [Radial] 86 Respiratory Rate 16 Blood Pressure [Right Radial Artery] 112/60 Blood Pressure Mean [Right Radial Artery] 77 Blood Pressure Position [Right Radial Artery] Sitting 02 Sat by Pulse Oximetry 98 Oxygen Delivery Method Room Air - Lab Data Lab Results 12/21/21 16:40: WBC 13.1 H, RBC 5.02, Hgb 14.8, Hct 43.8, MCV 87.3, MCH 29.6, MCHC 33.9, RDW 12.2, Plt Count 308, MPV 6.9 L, Neut % (Auto) 62.7, Lymph % (Auto) 31.6, [place] % (Auto) 4.2, Eos % (Auto) 1.3, Baso % (Auto) 0.3, Neut # (Auto) 8.2 H, Lymph # (Auto) 4.1, [place] # (Auto) 0.6, Eos # (Auto) 0.2, Baso # (Auto) 0.0 12/21/21 16:40: C-Reactive Protein 0.7 Result diagrams: 12/21/21 16:40 Orders (Tests/Meds): ED MEDICATIONS Discontinued Medications Generic Name Dose Route Start Last Admin Trade Name Freq PRN Reason Stop Dose Admin Lidocaine 1 each 12/21/21 16:29 12/21/21 16:40 Lidocaine 5% Transdermal Patch TP 12/21/21 16:30 1 each ONCE ONE Administration Methocarbamol 500 mg 12/21/21 16:43 12/21/21 16:45 Methocarbamol 500mg Tablet PO 12/21/21 16:44 500 mg ONCE ONE Administration ORDERS Category Date Time Status Complete Blood Count Auto Diff Stat Lab 12/21/21 16:40 Results Erythrocyte Sedimentation Rate Stat Lab 12/21/21 16:40 Results Medical Decision Narrative: In summary this is a 46-year-old [id number] male presenting to the emergency department with right-sided neck pain, radiating into the right shoulder. Patient clinically stable on arrival. Vital signs within normal limits. His description of pain is most consistent with cervical strain, disc bulge, nerve compression. Will obtain CBC, ESR, CRP. Became patch applied. Patient given Robaxin Reviewed his medical record. X-rays from 48 hours ago showed no bony changes of the cervical spine. Patient was discharged with prescriptions for Medrol Dosepak and Flexeril. Sasha
[2021-12-21 16:57] LABS: Basophils % 0.3 % (0.1-2.0); Eosinophils # 0.2 K/mm3 (0.0-0.4); Eosinophils % 1.3 % (0.1-12.0); Hematocrit 43.8 % (42.0-52.0); Hemoglobin 14.8 g/dL (14.1-18.0); Lymphocytes # 4.1 K/mm3 (0.7-4.5); Lymphocytes % 31.6 % (10-50); Mean Corpuscular HGB Conc 33.9 g/dL (31.8-35.4); Mean Corpuscular Hemoglobin 29.6 pg (27.0-31.2); Mean Corpuscular Volume 87.3 fl (80-94); Mean Platelet Volume 6.9 fl (7.4-10.4); Monocytes # 0.6 K/mm3 (0.1-1.0); Monocytes % 4.2 % (1.7-9.3); Neutrophils # 8.2 K/mm3 (1.8-7.8); Neutrophils % 62.7 % (37.0-80.0); Platelet Count 308 K/mm3 (142-424); Red Blood Count 5.02 M/mm3 (4.60-6.20); Red Cell Distribution Width 12.2 % (11.5-17.5); White Blood Count 13.1 K/mm3 (4.8-10.8)
[2021-12-21 17:05] LABS: C-Reactive Protein 0.7 mg/L (0-4)
--- NOTE | 2021-12-21 17:19 | PC.NURSE ---
at the bedside updating POC
--- NOTE | 2021-12-21 17:19 | PC.NURSE ---
MD AT BEDSIDE TO UPDATE PT AND
--- NOTE | 2021-12-21 17:19 | PC.NURSE ---
ER MD at speaking with patient regarding update on POC
[2021-12-21 17:24] LABS: Erythrocyte Sedimentation Rate 4 mm/hr (0-15)
--- NOTE | 2021-12-21 17:26 | PC.WOUNDNOTE ---
UPDATED ON PLAN OF CARE
[2021-12-21 17:37] VITALS: BP 123/74; PULSE 78; RESP 16; TEMP 36.6; O2SAT 98
== END 2021-12-21 17:39 | disposition home or self-care (01) ==
PROVIDERS: Emergency Provider Emergency Medicine; PCP Emergency Medicine
DX: S16.1XXA Strain of muscle, fascia and tendon at neck level, initial encounter (principal); S14.2XXA Injury of nerve root of cervical spine, initial encounter; X50.0XXA Overexertion from strenuous movement or load, initial encounter; Z88.8 Allergy status to other drugs, medicaments and biological substances; K21.9 Gastro-esophageal reflux disease without esophagitis; E78.5 Hyperlipidemia, unspecified; I10 Essential (primary) hypertension; Z95.0 Presence of cardiac pacemaker
CPT/HCPCS: 85025; 85651; 86140; 99282

== ENCOUNTER → 2022-11-02 23:30 | Outpatient (CLI) | payer BC, SELFPAY | PROVIDERS: PCP Nurse Practitioner Family; Visit Provider Nurse Practitioner Family | DX: M54.50 Low back pain, unspecified (principal) | CPT/HCPCS: 87086 ==

== ENCOUNTER → 2023-04-25 23:47 | Outpatient (CLI) | payer BC, SELFPAY ==
[2023-04-25 18:54] LABS: Alanine Aminotransferase 31 U/L (12-78); Albumin Level 4.5 g/dl (3.5-5.0); Albumin/Globulin Ratio 1.5 (1.1-1.8); Alkaline Phosphatase 60 U/L (38-126); Anion Gap 16.9 mEq/L (5-15); Aspartate Amino Transferase 37 U/L (17-59); Bilirubin,Total 0.4 mg/dl (0.2-1.3); Blood Urea Nitrogen 20 mg/dl (9-20); Calcium 9.4 mg/dl (8.4-10.2); Carbon Dioxide 26 mmol/L (22.0-30.0); Chloride 102 mmol/L (98-107); Chol/HDL Ratio 5.2 (1-3.5); Cholesterol 223 mg/dl (140-200); Estimated Glomerular Filt Rate 65 ml/min (>60); GFR (African American) 78 ML/MIN (>60); Glucose 115 mg/dl (74-100); HDL Cholesterol 43 mg/dl (40-60); Potassium 3.9 mmoL/L (3.5-5.1); Sodium 141 mmol/L (136-145); Total Protein,Serum 7.5 g/dl (6.3-8.2); Triglycerides 313 mg/dl (30-150); VLDL Cholesterol 63 mg/dL (0-40)
[2023-04-25 19:05] LABS: Basophils % 0.4 % (0.1-2.0); Eosinophils # 0.1 K/mm3 (0.0-0.4); Eosinophils % 2.1 % (0.1-12.0); Hemoglobin 15.2 g/dL (14.1-18.0); Lymphocytes # 3.2 K/mm3 (0.7-4.5); Lymphocytes % 46.1 % (10-50); Mean Corpuscular HGB Conc 34.6 g/dL (31.8-35.4); Mean Corpuscular Hemoglobin 30.6 pg (27.0-31.2); Mean Corpuscular Volume 88.3 fl (80-94); Mean Platelet Volume 8.3 fl (7.4-10.4); Monocytes # 0.4 K/mm3 (0.1-1.0); Monocytes % 6.4 % (1.7-9.3); Neutrophils # 3.1 K/mm3 (1.8-7.8); Platelet Count 292 K/mm3 (142-424); Red Blood Count 4.98 M/mm3 (4.60-6.20); Red Cell Distribution Width 13.2 % (11.5-17.5); White Blood Count 6.8 K/mm3 (4.8-10.8)
[2023-04-25 19:07] LABS: Direct LDL Cholesterol 115.15 mg/dL (100-129)
[2023-04-25 19:12] LABS: 25-OH Vitamin D, Total 46.2 ng/mL (30-100)
[2023-04-25 19:25] LABS: Prostate Specific Ag Screen 1.2 ng/ml (0.0-4.0); Thyroid Stimulating Hormone 0.68 uIU/mL (0.465-4.68)
[2023-04-25 19:30] LABS: Hemoglobin A1C 5.4 % (4.0-6.0)
== END ==
PROVIDERS: PCP Physician Assistant; Visit Provider Student in an Organized Health Care Education/Training Program
DX: E55.9 Vitamin D deficiency, unspecified (principal); E78.5 Hyperlipidemia, unspecified; I10 Essential (primary) hypertension; Z12.5 Encounter for screening for malignant neoplasm of prostate; Z68.26 Body mass index [BMI] 26.0-26.9, adult
CPT/HCPCS: 80053; 80061; 82306; 83036; 84443; 85025; G0103

== ENCOUNTER → 2023-05-11 19:17 | Outpatient (CLI) | payer BC, SELFPAY | PROVIDERS: PCP Student in an Organized Health Care Education/Training Program; Visit Provider Student in an Organized Health Care Education/Training Program | DX: R35.0 Frequency of micturition (principal) | CPT/HCPCS: 87086 ==

== ENCOUNTER 2023-05-25 17:18 | Emergency (ER) | payer BC, SELFPAY ==
--- NOTE | 2023-05-25 17:52 | EXP.UTC ---
Discharge Plan Disposition Patient Disposition: Home, Self-Care Condition: Good Prescriptions Prescriptions: New amoxicillin [amoxicillin] 875 mg tablet 875 mg PO Q12H Qty: 20 0RF benzonatate [benzonatate] 100 mg capsule 100 mg PO TIDP PRN (Reason: Cough) Qty: 30 0RF guaifenesin [Mucinex] 600 mg tablet extended release 12hr 600 - 1,200 mg PO BIDP PRN (Reason: Congestion) Qty: 30 0RF No Action cetirizine [Zyrtec] 10 mg tablet 10 mg PO DAILY PRN (Reason: allergies ) Qty: 90 3RF metoprolol succinate 25 mg tablet extended release 24 hr See Rx Instructions .ROUTE .COMPLEX Qty: 90 3RF Dose Instruction: Take 1 tablet by mouth once daily for blood pressure Rx Instructions: Take 1 tablet by mouth once daily for blood pressure Myrbetriq 50 mg tablet extended release 24 hr See Rx Instructions .ROUTE .COMPLEX Qty: 90 3RF Dose Instruction: Take 1 tablet by mouth once daily Rx Instructions: Take 1 tablet by mouth once daily vilazodone 40 mg tablet See Rx Instructions .ROUTE .COMPLEX Qty: 90 0RF Dose Instruction: TAKE 1 TABLET BY MOUTH ONCE DAILY WITH FOOD/MEAL Rx Instructions: TAKE 1 TABLET BY MOUTH ONCE DAILY WITH FOOD/MEAL lidocaine 5 % adhesive patch,medicated 1 patch topical DAILY Qty: 15 0RF Rx Instructions: leave on most painful area for up to 12 hrs pregabalin [Lyrica] 75 mg capsule 75 mg PO BID Qty: 180 0RF zolpidem [Ambien] 10 mg tablet 10 mg PO HS PRN (Reason: insomnia) Qty: 30 0RF epinephrine 0.3 mg/0.3 mL auto-injector 0.3 mg IM ONCE PRN (Reason: Allergic Reaction) Qty: 1 1RF Rx Instructions: per package instructions aspirin 81 mg tablet,delayed release (DR/EC) See Rx Instructions .ROUTE .COMPLEX Qty: 90 3RF Dose Instruction: TAKE 1 TABLET BY MOUTH ONCE DAILY FOR HEART HEALTH Rx Instructions: TAKE 1 TABLET BY MOUTH ONCE DAILY FOR HEART HEALTH quetiapine 25 mg tablet See Rx Instructions .ROUTE .COMPLEX Qty: 90 3RF Dose Instruction: TAKE 1 TABLET BY MOUTH AT BEDTIME Rx Instructions: TAKE 1 TABLET BY MOUTH AT BEDTIME omeprazole 40 mg capsule,delayed release(DR/EC) See Rx Instructions .ROUTE .COMPLEX Qty: 90 3RF Dose Instruction: TAKE 1 CAPSULE BY MOUTH ONCE DAILY FOR 90 DAYS (SWALLOW WHOLE DO NOT CRUSH, CHEW, DISSOLVE, CUT OR BREAK) Rx Instructions: TAKE 1 CAPSULE BY MOUTH ONCE DAILY FOR 90 DAYS (SWALLOW WHOLE DO NOT CRUSH, CHEW, DISSOLVE, CUT OR BREAK) famotidine 20 mg tablet See Rx Instructions .ROUTE .COMPLEX Qty: 180 0RF Dose Instruction: TAKE 2 TABLETS BY MOUTH ONCE DAILY FOR ACID REFLUX Rx Instructions: TAKE 2 TABLETS BY MOUTH ONCE DAILY FOR ACID REFLUX trazodone 100 mg tablet 200 mg PO HS Qty: 60 10RF lansoprazole 30 mg capsule,delayed release(/EC) See Rx Instructions .ROUTE .COMPLEX Qty: 90 3RF Dose Instruction: Take 1 capsule by mouth once daily Rx Instructions: Take 1 capsule by mouth once daily tamsulosin 0.4 mg capsule See Rx Instructions .ROUTE .COMPLEX Qty: 180 0RF Dose Instruction: TAKE 1 CAPSULE BY MOUTH TWICE DAILY FOR PROSTATE AND URINATION Rx Instructions: TAKE 1 CAPSULE BY MOUTH TWICE DAILY FOR PROSTATE AND URINATION atorvastatin 20 mg tablet 20 mg PO DAILY Qty: 90 3RF naproxen 500 mg tablet 500 mg PO BID Qty: 20 0RF Referrals Follow up/Referrals: Sheron Jewell PA [Primary Care Provider] - See instructions Activity Restrictions/Add. Instructions Additional Instructions/Restrictions: Drink plenty of fluids. Take tylenol or ibuprofen for pain or fever. Take the medications as directed. Follow up with your regular doctor. GO TO THE ER FOR ANY WORSENING SYMPTOMS Clinical Impressions Clinical Impression: Sinusitis, Pharyngitis Instructions Patient Instructions: Sinusitis, DI for Pharyngitis/Tonsillophar
[2023-05-25 18:00] VITALS: BP 140/86; PULSE 84; RESP 18; TEMP 36.8; O2SAT 100; BMI 32.4
[2023-05-25 18:35] VITALS: BP 140/86; PULSE 84; RESP 18; TEMP 36.8; O2SAT 100
== END 2023-05-25 18:35 | disposition home or self-care (01) ==
PROVIDERS: Emergency Provider Nurse Practitioner Family; PCP Physician Assistant
DX: J01.90 Acute sinusitis, unspecified (principal); J02.9 Acute pharyngitis, unspecified; R09.89 Other specified symptoms and signs involving the circulatory and respiratory systems; R09.81 Nasal congestion; K21.9 Gastro-esophageal reflux disease without esophagitis; E78.5 Hyperlipidemia, unspecified
CPT/HCPCS: 99212; 99214; G0463

== ENCOUNTER → 2023-06-06 10:15 | Outpatient (CLI) | payer BC, SELFPAY ==
[2023-06-06 19:22] LABS: Amphetamine/Metha Screen,Urine Negative ng/ml (<1000)
[2023-06-06 19:24] LABS: Cannabinoid Screen,Urine Negative ng/ml (<50)
[2023-06-06 19:25] LABS: Barbiturates Screen,Urine Negative ng/ml (<200); Benzodiazepines Screen,Urine Negative ng/ml (<200)
[2023-06-06 19:26] LABS: Cocaine Screen,Urine Negative ng/ml (<300); Opiate Screen,Urine Negative ng/ml (<300)
[2023-06-06 19:27] LABS: Methadone Screen,Urine Negative ng/ml (<300)
[2023-06-06 19:30] LABS: Phencyclidine Screen,Urine Negative ng/ml (<25)
== END ==
PROVIDERS: PCP Family Medicine; Visit Provider Family Medicine
DX: G47.00 Insomnia, unspecified (principal); Z79.899 Other long term (current) drug therapy
CPT/HCPCS: 80305

== ENCOUNTER 2023-07-20 17:13 | Emergency (ER) | payer BC, SELFPAY ==
[2023-07-20 17:13] VITALS: BP 148/85; PULSE 77; RESP 18; TEMP 36.7; O2SAT 95; BMI 26.4
--- NOTE | 2023-07-20 17:36 | ED_ITS ---
Discharge Plan Disposition Patient Disposition: Home, Self-Care Condition: Good Prescriptions Prescriptions: New benzonatate [benzonatate] 100 mg capsule 100 mg PO TIDP PRN (Reason: Cough) Qty: 30 0RF methylprednisolone 4 mg Tablets,Dose Pack 4 mg PO DIRECTED 6 Days Qty: 21 0RF Rx Instructions: Take 1 pack as directed for 6 days amoxicillin-pot clavulanate 875-125 mg Tablet 1 tab PO Q12H Qty: 20 0RF No Action cetirizine [Zyrtec] 10 mg tablet 10 mg PO DAILY PRN (Reason: allergies ) Qty: 90 3RF metoprolol succinate 25 mg tablet extended release 24 hr See Rx Instructions .ROUTE .COMPLEX Qty: 90 3RF Dose Instruction: Take 1 tablet by mouth once daily for blood pressure Rx Instructions: Take 1 tablet by mouth once daily for blood pressure Myrbetriq 50 mg tablet extended release 24 hr See Rx Instructions .ROUTE .COMPLEX Qty: 90 3RF Dose Instruction: Take 1 tablet by mouth once daily Rx Instructions: Take 1 tablet by mouth once daily lidocaine 5 % adhesive patch,medicated 1 patch topical DAILY Qty: 15 0RF Rx Instructions: leave on most painful area for up to 12 hrs finasteride [Proscar] 5 mg tablet 5 mg PO DAILY Qty: 30 2RF gabapentin 100 mg capsule 100 mg PO TID Qty: 90 2RF epinephrine 0.3 mg/0.3 mL auto-injector 0.3 mg IM ONCE PRN (Reason: Allergic Reaction) Qty: 1 1RF Rx Instructions: per package instructions omeprazole 40 mg capsule,delayed release(DR/EC) See Rx Instructions .ROUTE .COMPLEX Qty: 90 3RF Dose Instruction: TAKE 1 CAPSULE BY MOUTH ONCE DAILY FOR 90 DAYS (SWALLOW WHOLE DO NOT CRUSH, CHEW, DISSOLVE, CUT OR BREAK) Rx Instructions: TAKE 1 CAPSULE BY MOUTH ONCE DAILY FOR 90 DAYS (SWALLOW WHOLE DO NOT CRUSH, CHEW, DISSOLVE, CUT OR BREAK) famotidine 20 mg tablet See Rx Instructions .ROUTE .COMPLEX Qty: 180 0RF Dose Instruction: TAKE 2 TABLETS BY MOUTH ONCE DAILY FOR ACID REFLUX Rx Instructions: TAKE 2 TABLETS BY MOUTH ONCE DAILY FOR ACID REFLUX trazodone 100 mg tablet 200 mg PO HS Qty: 60 10RF lansoprazole 30 mg capsule,delayed release(DR/EC) See Rx Instructions .ROUTE .COMPLEX Qty: 90 3RF Dose Instruction: Take 1 capsule by mouth once daily Rx Instructions: Take 1 capsule by mouth once daily atorvastatin 20 mg tablet 20 mg PO DAILY Qty: 90 3RF tadalafil 10 mg tablet 10 mg PO DAILY PRN (Reason: sexual activity) Qty: 30 2RF Rx Instructions: administer approximately 30min before sexual activity; do not use more than 1 dose per 24hrs aspirin 81 mg tablet,delayed release (DR/EC) See Rx Instructions .ROUTE .COMPLEX Qty: 90 3RF Dose Instruction: TAKE 1 TABLET BY MOUTH ONCE DAILY FOR HEART HEALTH Rx Instructions: TAKE 1 TABLET BY MOUTH ONCE DAILY FOR HEART HEALTH quetiapine 25 mg tablet See Rx Instructions .ROUTE .COMPLEX Qty: 90 3RF Dose Instruction: TAKE 1 TABLET BY MOUTH AT BEDTIME Rx Instructions: TAKE 1 TABLET BY MOUTH AT BEDTIME tamsulosin 0.4 mg capsule See Rx Instructions .ROUTE .COMPLEX Qty: 180 0RF Dose Instruction: TAKE 1 CAPSULE BY MOUTH TWICE DAILY FOR PROSTATE AND URINATION Rx Instructions: TAKE 1 CAPSULE BY MOUTH TWICE DAILY FOR PROSTATE AND URINATION vilazodone 40 mg tablet See Rx Instructions .ROUTE .COMPLEX Qty: 90 0RF Dose Instruction: TAKE 1 TABLET BY MOUTH ONCE DAILY WITH FOOD/MEAL Rx Instructions: TAKE 1 TABLET BY MOUTH ONCE DAILY WITH FOOD/MEAL zolpidem [Ambien] 10 mg tablet 10 mg PO HS PRN (Reason: insomnia) Qty: 30 0RF Referrals Follow up/Referrals: Sheron Jewell PA [Primary Care Provider] - See instructions Activity Restrictions/Add. Instructions Additional Instructions/Restrictions: Drink plenty of fluids. Take tylenol or ibuprofen for pain or fever. Take the medications as directed. Follow up with your regular doctor. GO TO THE ER FOR ANY WORSENING SYMPTOMS Clinical Impressions Clinical Impression: Bronchitis, Pharyngitis Stand Alone Forms Stand Alone Forms: Work/School Release Instructions Patient Instructions: Sore Throat, DI for Pharyngitis/Tonsillopharyngitis -- Adult Discharge ED Provider: Colton Hood [facility] General Stated complaint: cough, congestion, sore throat Mode of Arrival: Ambulatory Source of Information: Parent(s) Limitations: No Limitations Time Seen by Provider: 07/20/23 17:36 Description of Symptoms (Recalled from Triage Doc. by RN): Pt's symptoms are cough, congestion, DUNN, fever, stomach ache, and sore throat. HEENT Symptoms (Recalled from RN notes): Yes Resp Symptoms (Recalled from RN notes): No Skin Symptoms (Recalled from RN notes): No MS Symptoms (Recalled from RN notes): No Functional Status (Recalled from RN notes): n/a History of Present Illness Provider Complaint: He states that for the past 3 days he has had sore throat, chills, cough and sinus congestion. Related Data Previous Rx's Medication Instructions Recorded epinephrine 0.3 mg/0.3 mL 0.3 mg (0.3 mL) IM ONCE PRN 12/08/21 injection, auto-injector Allergic Reaction ##1 cetirizine 10 mg tablet (Zyrtec) 10 mg PO DAILY PRN allergies #90 09/18/22 tabs metoprolol succinate 25 mg See Rx Instructions .Route 09/18/22 tablet,extended release 24 hr .COMPLEX #90 tabs mirabegron 50 mg tablet,extended See Rx Instructions .Route 09/18/22 release 24 hr (Myrbetriq) .COMPLEX #90 tabs omeprazole 40 mg capsule,delayed See Rx Instructions .Route 11/27/22 release .COMPLEX #90 caps famotidine 20 mg tablet See Rx Instructions .Route 12/06/22 .COMPLEX #180 tabs trazodone 100 mg tablet 200 mg PO HS #60 tabs 12/06/22 lansoprazole 30 mg capsule,delayed See Rx Instructions .Route 01/30/23 release .COMPLEX #90 caps lidocaine 5 % topical patch 1 patch topical DAILY #15 ea 04/25/23 atorvastatin 20 mg tablet 20 mg PO DAILY #90 tabs 05/08/23 finasteride 5 mg tablet (Proscar) 5 mg PO DAILY #30 tabs 06/06/23 gabapentin 100 mg capsule 100 mg PO TID #90 caps 06/06/23 tadalafil 10 mg tablet 10 mg PO DAILY PRN sexual activity 06/17/23 #30 tabs aspirin 81 mg tablet,delayed See Rx Instructions .Route 06/19/23 release .COMPLEX #90 tabs quetiapine 25 mg tablet See Rx Instructions .Route 07/13/23 .COMPLEX #90 tabs tamsulosin 0.4 mg capsule See Rx Instructions .Route 07/13/23 .COMPLEX #180 caps vilazodone 40 mg tablet See Rx Instructions .Route 07/16/23 .COMPLEX #90 tabs zolpidem 10 mg tablet (Ambien) 10 mg PO HS PRN insomnia #30 tabs 07/19/23 amoxicillin 875 mg-potassium 1 tab PO Q12H #20 tabs 07/20/23 clavulanate 125 mg tablet benzonatate 100 mg capsule 100 mg PO TIDP PRN Cough #30 caps 07/20/23 methylprednisolone 4 mg tablets in 4 mg PO DIRECTED 6 days #21 tabs 07/20/23 a dose pack Allergies Allergy/AdvReac Type Severity Reaction Status Date / Time cabozantinib [From [employer]] Allergy Verified 07/20/23 17:30 cortisone Allergy Verified 07/20/23 17:30 meperidine Allergy Verified 07/20/23 17:30 Worker's Comp Is this a Worker's Comp case?: No [facility] Disclaimer: The information contained in this section may have been updated after the patient was seen, as this information can be updated by other users. Medical History (Updated 07/20/23 @ 17:47 by Colton Hood APRN) Anxiety BPH (benign prostatic hyperplasia) Depression Eustachian tube dysfunction GERD (gastroesophageal reflux disease) Hyperlipidemia Insomnia Low back pain Osteoarthritis Pharyngitis PTSD (post-traumatic stress disorder) Sacroiliitis Sinusitis Surgical History No significant past surgical history Family History Other No significant family history Social History Smoking Status: Never smoker second hand exposure: No alcohol intake: never substance use type: denies use current occupational status: other Travel in the last 8 weeks: None household members: spouse housing: house current occupational exposures/hazards: No caffeine: Yes ROS Obtained: Yes All systems reviewed & no additional complaints except as documented Constitutional Constitutional: Reports chills and Reports fever(s) Eyes Eyes: Denies eye discharge ENT Ears, Nose, Mouth, and Throat: Reports as per HPI Cardiovascular Cardiovascular: Denies chest pain Respiratory Respiratory: Denies chest congestion and Reports cough Gastrointestinal Gastrointestingal: Reports nausea; Denies abdominal pain, constipation, cramping, diarrhea or vomiting Musculoskeletal Musculoskeletal: Denies arthralgias Integumentary/Breasts Skin/Breast: Denies rash Neurologic Neurologic: Denies paresthesias Physical Exam General General appearance: alert and in no apparent distress Eye Eye exam: Present normal appearance, PERRL and EOMI ENT ENT exam: Present mucous membranes moist and normal external ear exam Expanded ENT Exam External ear exam: Present normal external inspection TM/Canal exam: Bilateral TM: erythema and bulging Nose exam: Absent sinus tenderness Nasal speculum exam: Bilateral: normal Mouth exam: Present normal external inspection; Absent drooling Teeth exam: Present normal inspection Throat exam: Present tonsillar erythema and tonsillomegaly Neck Neck exam: Present normal inspection, full ROM and trachea midline; Absent tenderness, lymphadenopathy or thyromegaly Chest Chest inspection: Present normal inspection and symmetric chest wall rise; Absent tenderness or rash Respiratory Respiratory exam: Present normal lung sounds bilaterally; Absent respiratory distress, wheezes, stridor or accessory muscle use Cardiovascular Cardiovascular exam: Present regular rate, normal rhythm and normal heart sounds Abdominal Exam Abdominal exam: Present soft; Absent distention, tenderness, guarding, rebound or rigidity Extremities Exam Extremities exam: Present normal inspection, full ROM and normal capillary refill; Absent tenderness or calf tenderness Back Exam Back exam: Present normal inspection and full ROM; Absent tenderness Neurological Exam Neurological exam: Present alert and oriented X3 Psychiatric Psychiatric exam: Present normal affect and normal mood Skin Skin exam: Present warm, dry, intact and normal color Lymphatic Lymphatic Findings: no adenopathy Medical Decision Making Medical Records Medical records reviewed: No I reviewed the patient's medical records. Abraham Inquiry Pt receiving controlled substance: No Vital Signs: 07/20/23 17:13 Temperature 98.1 F Temperature Source Oral Pulse Rate [Right Radial] 77 Respiratory Rate 18 Blood Pressure [Right Arm] 148/85 H Blood Pressure Mean [Right Arm] 106 Blood Pressure Source [Right Arm] Automatic Cuff Blood Pressure Position [Right Arm] Sitting 02 Sat by Pulse Oximetry 95 Oxygen Delivery Method Room Air Lab Data Lab results reviewed: Yes I reviewed the patient's lab results.
[2023-07-20 17:44] LABS: UTC Influenza A Antigen Negative (Negative); UTC Influenza B Antigen Negative (Negative); UTC Strep Screen (Rapid) Negative (Negative)
[2023-07-20 17:52] VITALS: BP 148/85; PULSE 77; RESP 18; TEMP 36.7; O2SAT 95
== END 2023-07-20 17:51 | disposition home or self-care (01) ==
PROVIDERS: Emergency Provider Nurse Practitioner Family; PCP Physician Assistant
DX: J20.9 Acute bronchitis, unspecified (principal); J02.9 Acute pharyngitis, unspecified; R05.9 Cough, unspecified; R09.81 Nasal congestion; K21.9 Gastro-esophageal reflux disease without esophagitis; E78.5 Hyperlipidemia, unspecified
CPT/HCPCS: 87804; 87880; 99212; 99214; G0463

== ENCOUNTER 2023-08-04 16:22 | Emergency (ER) | payer BC, SELFPAY ==
[2023-08-04 16:45] VITALS: BP 138/87; PULSE 100; RESP 18; TEMP 37.3; O2SAT 96; BMI 25.5
--- NOTE | 2023-08-04 16:54 | ED_ITS ---
Discharge Plan Disposition Patient Disposition: Home, Self-Care Condition: Good Prescriptions Prescriptions: New promethazine-DM 6.25-15 mg/5 mL Syrup 5 ml PO Q6H PRN (Reason: Cough) Qty: 240 0RF ibuprofen [IBU] 800 mg tablet 800 mg PO Q8HP PRN (Reason: Moderate Pain) Qty: 30 0RF oseltamivir [Tamiflu] 75 mg capsule 75 mg PO BID Qty: 10 0RF No Action cetirizine [Zyrtec] 10 mg tablet 10 mg PO DAILY PRN (Reason: allergies ) Qty: 90 3RF metoprolol succinate 25 mg tablet extended release 24 hr See Rx Instructions .ROUTE .COMPLEX Qty: 90 3RF Dose Instruction: Take 1 tablet by mouth once daily for blood pressure Rx Instructions: Take 1 tablet by mouth once daily for blood pressure Myrbetriq 50 mg tablet extended release 24 hr See Rx Instructions .ROUTE .COMPLEX Qty: 90 3RF Dose Instruction: Take 1 tablet by mouth once daily Rx Instructions: Take 1 tablet by mouth once daily lidocaine 5 % adhesive patch,medicated 1 patch topical DAILY Qty: 15 0RF Rx Instructions: leave on most painful area for up to 12 hrs finasteride [Proscar] 5 mg tablet 5 mg PO DAILY Qty: 30 2RF gabapentin 100 mg capsule 100 mg PO TID Qty: 90 2RF epinephrine 0.3 mg/0.3 mL auto-injector 0.3 mg IM ONCE PRN (Reason: Allergic Reaction) Qty: 1 1RF Rx Instructions: per package instructions omeprazole 40 mg capsule,delayed release(DR/EC) See Rx Instructions .ROUTE .COMPLEX Qty: 90 3RF Dose Instruction: TAKE 1 CAPSULE BY MOUTH ONCE DAILY FOR 90 DAYS (SWALLOW WHOLE DO NOT CRUSH, CHEW, DISSOLVE, CUT OR BREAK) Rx Instructions: TAKE 1 CAPSULE BY MOUTH ONCE DAILY FOR 90 DAYS (SWALLOW WHOLE DO NOT CRUSH, CHEW, DISSOLVE, CUT OR BREAK) famotidine 20 mg tablet See Rx Instructions .ROUTE .COMPLEX Qty: 180 0RF Dose Instruction: TAKE 2 TABLETS BY MOUTH ONCE DAILY FOR ACID REFLUX Rx Instructions: TAKE 2 TABLETS BY MOUTH ONCE DAILY FOR ACID REFLUX trazodone 100 mg tablet 200 mg PO HS Qty: 60 10RF lansoprazole 30 mg capsule,delayed release(DR/EC) See Rx Instructions .ROUTE .COMPLEX Qty: 90 3RF Dose Instruction: Take 1 capsule by mouth once daily Rx Instructions: Take 1 capsule by mouth once daily atorvastatin 20 mg tablet 20 mg PO DAILY Qty: 90 3RF tadalafil 10 mg tablet 10 mg PO DAILY PRN (Reason: sexual activity) Qty: 30 2RF Rx Instructions: administer approximately 30min before sexual activity; do not use more than 1 dose per 24hrs aspirin 81 mg tablet,delayed release (DR/EC) See Rx Instructions .ROUTE .COMPLEX Qty: 90 3RF Dose Instruction: TAKE 1 TABLET BY MOUTH ONCE DAILY FOR HEART HEALTH Rx Instructions: TAKE 1 TABLET BY MOUTH ONCE DAILY FOR HEART HEALTH quetiapine 25 mg tablet See Rx Instructions .ROUTE .COMPLEX Qty: 90 3RF Dose Instruction: TAKE 1 TABLET BY MOUTH AT BEDTIME Rx Instructions: TAKE 1 TABLET BY MOUTH AT BEDTIME tamsulosin 0.4 mg capsule See Rx Instructions .ROUTE .COMPLEX Qty: 180 0RF Dose Instruction: TAKE 1 CAPSULE BY MOUTH TWICE DAILY FOR PROSTATE AND URINATION Rx Instructions: TAKE 1 CAPSULE BY MOUTH TWICE DAILY FOR PROSTATE AND URINATION vilazodone 40 mg tablet See Rx Instructions .ROUTE .COMPLEX Qty: 90 0RF Dose Instruction: TAKE 1 TABLET BY MOUTH ONCE DAILY WITH FOOD/MEAL Rx Instructions: TAKE 1 TABLET BY MOUTH ONCE DAILY WITH FOOD/MEAL zolpidem [Ambien] 10 mg tablet 10 mg PO HS PRN (Reason: insomnia) Qty: 30 0RF doxepin 25 mg capsule 25 mg PO HS Qty: 90 3RF benzonatate [benzonatate] 100 mg capsule 100 mg PO TIDP PRN (Reason: Cough) Qty: 30 0RF methylprednisolone 4 mg Tablets,Dose Pack 4 mg PO DIRECTED 6 Days Qty: 21 0RF Rx Instructions: Take 1 pack as directed for 6 days amoxicillin-pot clavulanate 875-125 mg Tablet 1 tab PO Q12H Qty: 20 0RF Referrals Follow up/Referrals: Sheron Jewell PA [Primary Care Provider] - See instructions Activity Restrictions/Add. Instructions Additional Instructions/Restrictions: Drink plenty of fluids. Take tylenol or ibuprofen for pain or fever. Take the medications as directed. Follow up with your regular doctor. GO TO THE ER FOR ANY WORSENING SYMPTOMS The cough medication (promethazine dm) will make you drowsy, so don't drive or operate heavy machinery after taking it. Clinical Impressions Clinical Impression: Influenza B Instructions Patient Instructions: DI for Influenza -- Adult, Promethazine Discharge ED Provider: Colton Hood [facility] General Stated complaint: cough, bin, runny nose Time Seen by Provider: 08/04/23 16:54 History of Present Illness Provider Complaint: He states that for the past 2 days he has had fever, chills, body aches, and malaise. Related Data Previous Rx's Medication Instructions Recorded epinephrine 0.3 mg/0.3 mL 0.3 mg (0.3 mL) IM ONCE PRN 12/08/21 injection, auto-injector Allergic Reaction ##1 cetirizine 10 mg tablet (Zyrtec) 10 mg PO DAILY PRN allergies #90 09/18/22 tabs metoprolol succinate 25 mg See Rx Instructions .Route 09/18/22 tablet,extended release 24 hr .COMPLEX #90 tabs mirabegron 50 mg tablet,extended See Rx Instructions .Route 09/18/22 release 24 hr (Myrbetriq) .COMPLEX #90 tabs omeprazole 40 mg capsule,delayed See Rx Instructions .Route 11/27/22 release .COMPLEX #90 caps famotidine 20 mg tablet See Rx Instructions .Route 12/06/22 .COMPLEX #180 tabs trazodone 100 mg tablet 200 mg PO HS #60 tabs 12/06/22 lansoprazole 30 mg capsule,delayed See Rx Instructions .Route 01/30/23 release .COMPLEX #90 caps lidocaine 5 % topical patch 1 patch topical DAILY #15 ea 04/25/23 atorvastatin 20 mg tablet 20 mg PO DAILY #90 tabs 05/08/23 finasteride 5 mg tablet (Proscar) 5 mg PO DAILY #30 tabs 06/06/23 gabapentin 100 mg capsule 100 mg PO TID #90 caps 06/06/23 tadalafil 10 mg tablet 10 mg PO DAILY PRN sexual activity 06/17/23 #30 tabs aspirin 81 mg tablet,delayed See Rx Instructions .Route 06/19/23 release .COMPLEX #90 tabs quetiapine 25 mg tablet See Rx Instructions .Route 07/13/23 .COMPLEX #90 tabs tamsulosin 0.4 mg capsule See Rx Instructions .Route 07/13/23 .COMPLEX #180 caps vilazodone 40 mg tablet See Rx Instructions .Route 07/16/23 .COMPLEX #90 tabs zolpidem 10 mg tablet (Ambien) 10 mg PO HS PRN insomnia #30 tabs 07/19/23 amoxicillin 875 mg-potassium 1 tab PO Q12H #20 tabs 07/20/23 clavulanate 125 mg tablet benzonatate 100 mg capsule 100 mg PO TIDP PRN Cough #30 caps 07/20/23 methylprednisolone 4 mg tablets in 4 mg PO DIRECTED 6 days #21 tabs 07/20/23 a dose pack doxepin 25 mg capsule 25 mg PO HS #90 caps 07/30/23 ibuprofen 800 mg tablet (IBU) 800 mg PO Q8HP PRN Moderate Pain 08/04/23 #30 tabs oseltamivir 75 mg capsule (Tamiflu) 75 mg PO BID #10 caps 08/04/23 promethazine-DM 6.25 mg-15 mg/5 mL 5 ml PO Q6H PRN Cough #240 mL 08/04/23 oral syrup Allergies Allergy/AdvReac Type Severity Reaction Status Date / Time cabozantinib [From [employer]] Allergy Verified 08/04/23 16:59 cortisone Allergy Verified 08/04/23 16:59 meperidine Allergy Verified 08/04/23 16:59 PFSH PFSH Disclaimer: The information contained in this section may have been updated after the patient was seen, as this information can be updated by other users. Medical History (Updated 08/04/23 @ 17:04 by Colton Hood APRN) Anxiety BPH (benign prostatic hyperplasia) Depression Eustachian tube dysfunction GERD (gastroesophageal reflux disease) Hyperlipidemia Insomnia Low back pain Osteoarthritis Pharyngitis PTSD (post-traumatic stress disorder) Sacroiliitis Sinusitis Surgical History No significant past surgical history Family History Other No significant family history Social History Smoking Status: Never smoker second hand exposure: No alcohol intake: never substance use type: denies use current occupational status: other Travel in the last 8 weeks: None household members: spouse housing: house current occupational exposures/hazards: No caffeine: Yes ROS Obtained: Yes All systems reviewed & no additional complaints except as documented Constitutional Constitutional: Reports chills and Reports fever(s) Eyes Eyes: Denies eye discharge ENT Ears, Nose, Mouth, and Throat: Reports as per HPI Cardiovascular Cardiovascular: Denies chest pain Respiratory Respiratory: Denies chest congestion and Reports cough Gastrointestinal Gastrointestingal: Reports nausea; Denies abdominal pain, constipation, cramping, diarrhea or vomiting Musculoskeletal Musculoskeletal: Denies arthralgias Integumentary/Breasts Skin/Breast: Denies rash Neurologic Neurologic: Denies paresthesias Physical Exam General General appearance: alert and in no apparent distress Head Head exam: atraumatic, normocephalic and normal inspection Eye Eye exam: Present normal appearance, PERRL and EOMI ENT ENT exam: Present normal exam, normal oropharynx, mucous membranes moist, TM's normal bilaterally and normal external ear exam Neck Neck exam: Present normal inspection, full ROM and trachea midline; Absent meningismus or lymphadenopathy Chest Chest inspection: Present normal inspection and symmetric chest wall rise; Absent tenderness Respiratory Respiratory exam: Present normal lung sounds bilaterally; Absent respiratory di stress Cardiovascular Cardiovascular exam: Present regular rate and normal rhythm; Absent JVD Abdominal Exam Abdominal exam: Present soft and normal bowel sounds; Absent distention, tenderness or guarding Extremities Exam Extremities exam: Present normal inspection, full ROM and normal capillary refill; Absent calf tenderness Back Exam Back exam: Present normal inspection; Absent tenderness Neurological Exam Neurological exam: Present alert and oriented X3 Psychiatric Psychiatric exam: Present normal affect and normal mood Skin Skin exam: Present warm, dry, intact and normal color Lymphatic Lymphatic Findings: no adenopathy Medical Decision Making Medical Records Medical records reviewed: No I reviewed the patient's medical records. Abraham Inquiry Pt receiving controlled substance: No Lab Data Lab results reviewed: Yes I reviewed the patient's lab results.
[2023-08-04 17:02] LABS: UTC Influenza A Antigen Negative (Negative); UTC Influenza B Antigen Positive (Negative)
[2023-08-04 17:03] VITALS: BP 138/87; PULSE 100; RESP 18; TEMP 37.3; O2SAT 96
== END 2023-08-04 17:25 | disposition home or self-care (01) ==
PROVIDERS: Emergency Provider Nurse Practitioner Family; PCP Physician Assistant
DX: J10.1 Influenza due to other identified influenza virus with other respiratory manifestations (principal); R50.9 Fever, unspecified; R09.81 Nasal congestion; R05.9 Cough, unspecified; R53.81 Other malaise; K21.9 Gastro-esophageal reflux disease without esophagitis; E78.5 Hyperlipidemia, unspecified
CPT/HCPCS: 87804; 99212; 99214; G0463

== ENCOUNTER 2023-08-21 15:04 | Outpatient (CLI) | payer BC, SELFPAY ==
--- NOTE | 2023-08-21 15:07 | US_ITS ---
FINAL REPORT TECHNIQUE: Sonographic images of the testicles and scrotum were obtained in the longitudinal and transverse planes. CLINICAL HISTORY: Right testicular swelling COMPARISON: None FINDINGS: The right testicle measures 4.9 x 2.2 x 2.8 centimeters. There is no intratesticular mass. The epididymis is within normal limits. No extratesticular mass is identified. The left testicle measures 4.9 x 2.3 x 3.3 centimeters. There is no intratesticular mass. The epididymis is within normal limits. No extratesticular mass is identified. Color imaging reveals no evidence of testicular torsion. IMPRESSION: No evidence of intratesticular mass or testicular torsion. Unremarkable exam. Reviewed, Interpreted and Dictated by Kristie Rolon MD Transcribed by Aparna Cantor Authenticated and [facility]
== END 2023-08-21 23:59 ==
LOC: RAD 15:04
PROVIDERS: PCP Physician Assistant; Visit Provider Physician Assistant
DX: N50.89 Other specified disorders of the male genital organs (principal)
CPT/HCPCS: 76870

== ENCOUNTER 2024-02-06 15:41 | Outpatient (CLI) | payer BC, SELFPAY ==
[2024-02-09 04:25] LABS: Neisseria gonorrhoeae, NAA Negative (Negative)
== END 2024-02-06 23:59 | disposition home or self-care (01) ==
LOC: LAB.DROPOF 02-07 11:09
PROVIDERS: PCP Nurse Practitioner Family; Visit Provider Nurse Practitioner Family
DX: R39.9 Unspecified symptoms and signs involving the genitourinary system (principal)
CPT/HCPCS: 87086; 87491; 87591

== ENCOUNTER 2024-03-14 09:20 | Outpatient (CLI) | payer BC, SELFPAY ==
[2024-03-14 18:39] LABS: Basophils % 0.5 % (0.1-2.0); Eosinophils % 0.9 % (0.1-12.0); Hematocrit 45.9 % (42.0-52.0); Hemoglobin 14.3 g/dL (14.1-18.0); Lymphocytes # 1.8 K/mm3 (0.7-4.5); Lymphocytes % 34.3 % (10-50); Mean Corpuscular HGB Conc 31.2 g/dL (31.8-35.4); Mean Corpuscular Hemoglobin 29.2 pg (27.0-31.2); Mean Corpuscular Volume 93.5 fl (80-94); Mean Platelet Volume 7.4 fl (7.4-10.4); Monocytes # 0.4 K/mm3 (0.1-1.0); Neutrophils % 57.3 % (37.0-80.0); Platelet Count 311 K/mm3 (142-424); Red Blood Count 4.91 M/mm3 (4.60-6.20); Red Cell Distribution Width 13.4 % (11.5-17.5); White Blood Count 5.2 K/mm3 (4.8-10.8)
[2024-03-14 18:56] LABS: Alanine Aminotransferase 18 U/L (12-78); Albumin Level 4.5 g/dl (3.5-5.0); Albumin/Globulin Ratio 1.7 (1.1-1.8); Alkaline Phosphatase 56 U/L (38-126); Aspartate Amino Transferase 25 U/L (17-59); Bilirubin,Total 0.5 mg/dl (0.2-1.3); Blood Urea Nitrogen 20 mg/dl (9-20); Calcium 9.6 mg/dl (8.4-10.2); Carbon Dioxide 24 mmol/L (22.0-30.0); Chloride 106 mmol/L (98-107); Chol/HDL Ratio 3.6 (1-3.5); Cholesterol 164 mg/dl (140-200); Estimated Glomerular Filt Rate 64 ml/min (>60); GFR (African American) 78 ML/MIN (>60); Globulin 2.6 g/dL (1.3-3.2); Glucose 96 mg/dl (74-100); HDL Cholesterol 46 mg/dl (40-60); Sodium 137 mmol/L (136-145); Total Protein,Serum 7.1 g/dl (6.3-8.2); Triglycerides 135 mg/dl (30-150); VLDL Cholesterol 27 mg/dL (0-40)
[2024-03-14 19:02] LABS: Erythrocyte Sedimentation Rate 6 mm/hr (0-15)
[2024-03-14 19:08] LABS: C-Reactive Protein 0.5 mg/L (0-4); Direct LDL Cholesterol 87.35 mg/dL (100-129)
[2024-03-14 19:11] LABS: 25-OH Vitamin D, Total 45.8 ng/mL (30-100)
[2024-03-14 19:14] LABS: Hemoglobin A1C 5.4 % (4.0-6.0)
[2024-03-14 20:17] LABS: Anion Gap 11.3 mEq/L (5-15); Potassium 4.3 mmoL/L (3.5-5.1)
[2024-03-14 22:28] LABS: Thyroid Stimulating Hormone 0.56 uIU/mL (0.465-4.68)
[2024-03-15 09:02] LABS: HIV (1&2) Antibody Rapid NONREACTIVE (NONREACTIVE)
[2024-03-16 09:08] LABS: HCV Ab Non Reactive (Non Reactive)
== END 2024-03-14 23:59 | disposition home or self-care (01) ==
LOC: LAB.DROPOF 03-17 09:20
PROVIDERS: PCP Student in an Organized Health Care Education/Training Program; Visit Provider Student in an Organized Health Care Education/Training Program
DX: L81.9 Disorder of pigmentation, unspecified (principal); K62.5 Hemorrhage of anus and rectum; Z80.8 Family history of malignant neoplasm of other organs or systems; R63.4 Abnormal weight loss; Z68.23 Body mass index [BMI] 23.0-23.9, adult
CPT/HCPCS: 80050; 80053; 80061; 82306; 83036; 84443; 85025; 85651; 86140; 86803; 87389

== ENCOUNTER 2024-03-17 12:00 | Outpatient (CLI) | payer BC, SELFPAY | END 2024-03-17 23:59 | disposition home or self-care (01) | LOC: LAB.DROPOF 03-18 08:41 | PROVIDERS: PCP Urology; Visit Provider Urology | DX: R39.9 Unspecified symptoms and signs involving the genitourinary system (principal) | CPT/HCPCS: 87491; 87563; 87591; 87798 ==

== ENCOUNTER 2024-06-19 16:20 | Outpatient (CLI) | payer BC, SELFPAY | END 2024-06-19 23:59 | disposition home or self-care (01) | LOC: RAD 16:21 | PROVIDERS: PCP Physician Assistant; Visit Provider Physician Assistant | DX: R41.3 Other amnesia (principal) ==

== ENCOUNTER 2024-06-28 20:30 | Emergency (ER) | payer MEDICAID, SELFPAY ==
[2024-06-28] VITALS (9 sets, daily range): BP systolic 111–148; BP diastolic 64–90; PULSE 70–78; RESP 16; TEMP 36.8; O2SAT 96–98; BMI 23.4
--- NOTE | 2024-06-28 20:51 | ED_ITS ---
Discharge Plan Disposition Patient Disposition: Home, Self-Care Condition: Good Prescriptions Prescriptions: New methocarbamol 500 mg tablet 1,000 mg PO Q6H PRN (Reason: pain) Qty: 30 0RF lidocaine 5 % adhesive patch,medicated 1 patch topical DAILY PRN (Reason: pain) Qty: 30 0RF Rx Instructions: leave on most painful area for up to 12 hrs No Action omeprazole 40 mg capsule,delayed release(DR/EC) 40 mg PO DAILY melatonin 10 mg capsule 20 mg PO HS PRN levocetirizine [Xyzal] 5 mg tablet 5 mg PO DAILY Qty: 90 3RF quetiapine 25 mg tablet 25 mg PO HS Qty: 90 0RF aspirin 81 mg tablet,delayed release (DR/EC) 81 mg PO DAILY Qty: 90 3RF mirabegron [Myrbetriq] 50 mg tablet extended release 24 hr 50 mg PO DAILY Qty: 90 3RF trazodone 100 mg tablet 200 mg PO HS Qty: 180 0RF zolpidem 10 mg tablet 10 mg PO HS Qty: 30 0RF vilazodone 40 mg tablet 40 mg PO DAILY Qty: 90 0RF famotidine 20 mg tablet 40 mg PO DAILY lansoprazole 30 mg capsule,delayed release(DR/EC) 30 mg PO DAILY tamsulosin 0.4 mg capsule 0.4 mg PO Q24H 90 Days Qty: 90 1RF tadalafil [Cialis] 5 mg tablet 5 mg PO DAILY Qty: 30 2RF tadalafil [Cialis] 20 mg tablet 20 mg PO DAILY Qty: 20 1RF Rx Instructions: administer approximately 60 min before sexual activity; do not use more than 1 dose per 24hrs doxepin 25 mg capsule 25 mg PO HS Qty: 90 3RF atorvastatin 20 mg tablet 20 mg PO DAILY Qty: 90 3RF metoprolol succinate 25 mg tablet extended release 24 hr 25 mg PO DAILY Qty: 90 3RF Referrals Follow up/Referrals: Sheron Jewell PA [Primary Care Provider] - See instructions Jay Saxena DO [Staff Physician] - See instructions Activity Restrictions/Add. Instructions Additional Instructions/Restrictions: Please follow-up with your primary care provider. Please return to the emergency department if you develop any new or worsening symptoms or become concerned for your health. Recommend following up with orthopedic surgery about the abnormal imaging of your hips. Clinical Impressions Clinical Impression: Avascular necrosis of femur head, right, Avascular necrosis of femur head, left, Abnormal finding on imaging of liver, Chronic right SI joint pain Instructions Patient Instructions: DI for Low Back Pain Print Language Print Language: Egyptian Discharge ED Provider: Leon Johnson Adult HPI <Leon Johnson MD - Last Filed: 06/29/24 00:28> General Chief complaint: Back Pain/Injury Stated complaint: Lower back pain right side,nausea Time Seen by Provider: 06/28/24 20:35 Mode of Arrival: Ambulatory Source of Information: Patient Limitations: No Limitations Description of Symptoms (Recalled from ER Triage Doc. by RN): Right lower back pain x1.5 weeks. Has not seen pcp. 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 History of Present Illness HPI narrative: Patient is a 49-year-old past medical history of reflux, BPH, low back pain, depression, hypertension presenting for right flank and back pain. According to patient's over the last 2 weeks he has had right lower back pain that has progressively worsened and going down to his lower back with radiation to his right groin. Patient said that he has had pain like this before and it went away on its own and does not know of any specific things that he has done to cause this pain. He has not take any medication prior to arrival and has not been able to see anyone prior to coming here for this pain. Patient has no shooting pain down his legs, numbness, tingling or weakness. Patient said that he has been diagnosed with in the past and had an ultrasound done that did not show anything. Patient said his pain gets worse when he bends over. Related Data Home Medications ?Medication ?Instructions ?Recorded ?Confirmed famotidine 20 mg tablet 40 mg PO DAILY 02/06/24 04/21/24 lansoprazole 30 mg capsule,delayed 30 mg PO DAILY 02/06/24 04/21/24 release melatonin 10 mg capsule 20 mg PO HS PRN 04/21/24 04/21/24 omeprazole 40 mg capsule,delayed 40 mg PO DAILY 04/21/24 04/21/24 release Previous Rx's ?Medication ?Instructions ?Recorded doxepin 25 mg capsule 25 mg PO HS #90 caps 07/30/23 atorvastatin 20 mg tablet 20 mg PO DAILY #90 tabs 02/21/24 metoprolol succinate 25 mg 25 mg PO DAILY #90 tabs 02/21/24 tablet,extended release 24 hr tadalafil 20 mg tablet (Cialis) 20 mg PO DAILY #20 tabs 03/17/24 tadalafil 5 mg tablet (Cialis) 5 mg PO DAILY #30 tabs 03/17/24 tamsulosin 0.4 mg capsule 0.4 mg PO Q24H 90 days #90 caps 03/17/24 aspirin 81 mg tablet,delayed 81 mg PO DAILY #90 tabs 04/21/24 release levocetirizine 5 mg tablet (Xyzal) 5 mg PO DAILY #90 tabs 04/21/24 mirabegron 50 mg tablet,extended 50 mg PO DAILY #90 tabs 04/21/24 release 24 hr (Myrbetriq) quetiapine 25 mg tablet 25 mg PO HS #90 tabs 04/21/24 trazodone 100 mg tablet 200 mg (2 x 100 mg) PO HS #180 tabs 04/21/24 vilazodone 40 mg tablet 40 mg PO DAILY #90 tabs 04/21/24 zolpidem 10 mg tablet 10 mg PO HS #30 tabs 04/21/24 lidocaine 5 % topical patch 1 patch topical DAILY PRN pain #30 06/29/24 ea methocarbamol 500 mg tablet 1,000 mg (2 x 500 mg) PO Q6H PRN 06/29/24 pain #30 tabs Allergies Allergy/AdvReac Type Severity Reaction Status Date / Time cabozantinib (From [facility]) Allergy Verified 04/21/24 14:24 cortisone Allergy Verified 04/21/24 14:24 meperidine Allergy Verified 04/21/24 14:24 [facility] <Leon Johnson MD - Last Filed: 06/29/24 00:28> [facility] Disclaimer: The information contained in this section may have been updated after the patient was seen, as this information can be updated by other users. Medical History (Updated 06/29/24 @ 00:18 by Jsos Mccoy MD) Poison jameel dermatitis UTI symptoms Pharyngitis Sinusitis Anxiety Low back pain PTSD (post-traumatic stress disorder) Depression Sacroiliitis Hyperlipidemia GERD (gastroesophageal reflux disease) BPH (benign prostatic hyperplasia) Osteoarthritis Eustachian tube dysfunction Insomnia Surgical History (Updated 04/22/24 @ 11:21 by Bettie Irvin APRN) History of tonsillectomy History of appendectomy Family History Other No significant family history Social History Smoking Status: Never smoker second hand exposure: No alcohol intake: never substance use type: denies use current occupational status: other Travel in the last 8 weeks: None household members: spouse housing: house current occupational exposures/hazards: No caffeine: Yes Have you lived/traveled outside [place] in past 30 days?: No Contact w/someone who lives/traveled outside US past 30 days?: No Exposure to someone with infectious disease in past 14 days?: No Do you have a fever (greater than 100.4 F or 38 C)?: No Have you tested positive for COVID-19: No Exposed to someone with COVID-19 in past 14 days?: No Do you have a sore throat?: No Do you have a cough?: No Do you have any weakness?: No Do you have any diarrhea?: No Are you experiencing any unusual bleeding?: No Do you have any muscle aches/pain?: No Do you have any abdominal pain?: No Are you experiencing loss of taste or smell?: No Other Medical History Have you received the Flu Vaccine for this season: Yes Have you received the Pneumonia Vaccine: No <Leon Johnson MD - Last Filed: 06/29/24 00:28> ROS Obtained: Yes All systems reviewed & no additional complaints except as documented Physical Exam <Leon Johnson MD - Last Filed: 06/29/24 00:28> General General appearance: alert and in no apparent distress Eye Eye exam: Present normal appearance ENT ENT exam: Present normal exam Chest Chest inspection: Present symmetric chest wall rise Respiratory Respiratory exam: Present normal lung sounds bilaterally; Absent respiratory distress Cardiovascular Cardiovascular exam: Present regular rate Abdominal Exam Abdominal exam: Present soft; Absent tenderness, guarding or rebound exam: Present normal inspection, normal testicular lie and circumcised; Absent testicular tenderness, urethral discharge or scrotal swelling Extremities Exam Extremities exam: Present full ROM; Absent tenderness Back Exam Back exam: Present normal inspection, tenderness (Left low paraspinal tenderness) and paraspinal tenderness; Absent CVA tenderness (R), CVA tenderness (L), muscle spasm or vertebral tenderness Neurological Exam Neurological exam: Present alert and oriented X3 Psychiatric Psychiatric exam: Present normal affect Skin Skin exam: Present warm and normal color Medical Decision Making <Leon Johnson MD - Last Filed: 06/29/24 00:28> Medical Records Medical records reviewed: Yes I reviewed the patient's medical records. Screening: Per USPSTF and CDC recommendations, given the prevalence of disease in our region, it is our hospital?s policy to screen for HIV and viral Hepatitis for all patients aged 18 and over and those with ongoing risk factors. Abraham Inquiry Pt receiving controlled substance: No Vital Signs: 06/28/24 20:32 06/28/24 20:38 06/28/24 20:45 Temperature 98.2 F Temperature Source Oral Pulse Rate 77 70 Pulse Rate [Right Radial] 74 Respiratory Rate 16 Blood Pressure 137/83 121/82 Blood Pressure [Right Arm] 137/83 Blood Pressure Mean 101 95 Blood Pressure Mean [Right Arm] 101 Blood Pressure Source Blood Pressure Source [Right Arm] Automatic Cuff Blood Pressure Position 02 Sat by Pulse Oximetry 98 96 98 Oxygen Delivery Method Room Air 06/28/24 21:15 06/28/24 22:39 06/28/24 23:00 Temperature Temperature Source Pulse Rate 72 77 78 Pulse Rate [Right Radial] Respiratory Rate Blood Pressure 148/90 H 112/68 111/64 Blood Pressure [Right Arm] Blood Pressure Mean 109 Blood Pressure Mean [Right Arm] Blood Pressure Source Blood Pressure Source [Right Arm] Blood Pressure Position 02 Sat by Pulse Oximetry 97 98 97 Oxygen Delivery Method 06/28/24 23:15 06/28/24 23:30 06/28/24 23:45 Temperature Temperature Source Pulse Rate 70 71 72 Pulse Rate [Right Radial] Respiratory Rate Blood Pressure 117/70 118/80 128/83 Blood Pressure [Right Arm] Blood Pressure Mean 91 Blood Pressure Mean [Right Arm] Blood Pressure Source Blood Pressure Source [Right Arm] Blood Pressure Position 02 Sat by Pulse Oximetry 98 98 98 Oxygen Delivery Method 06/29/24 00:00 06/29/24 00:16 06/29/24 00:22 Temperature 97.9 F Temperature Source Oral Pulse Rate 72 72 Pulse Rate [Right Radial] Respiratory Rate 16 Blood Pressure 114/81 123/85 128/74 Blood Pressure [Right Arm] Blood Pressure Mean 91 91 Blood Pressure Mean [Right Arm] Blood Pressure Source Automatic Cuff Blood Pressure Source [Right Arm] Blood Pressure Position Supine 02 Sat by Pulse Oximetry 99 Oxygen Delivery Method Room Air Lab Data Lab Results 06/28/24 20:37: Urine Color Yellow, Urine Appearance Clear, Urine pH 6.5, Ur Specific Sherman 1.025, Urine Protein Negative, Urine Glucose (UA) Negative, Urine Ketones Negative, Urine Blood Negative, Urine Nitrate Negative, Urine Bilirubin Negative, Urine Urobilinogen 0.2, Ur Leukocyte Esterase Negative, Urine RBC None, Urine WBC None, Ur Squamous Epith Cells None, Urine Bacteria Trace 06/28/24 22:15: WBC 7.7, RBC 5.09, Hgb 14.4, Hct 43.4, MCV 85.3, MCH 28.3, MCHC 33.2, RDW 11.9, Plt Count 291, MPV 9.1, Neut % (Auto) 54.2, Lymph % (Auto) 36.5, Routt % (Auto) 6.4, Eos % (Auto) 2.0, Baso % (Auto) 0.5, Neut # (Auto) 4.2, Lymph # (Auto) 2.8, Routt # (Auto) 0.5, Eos # (Auto) 0.2, Baso # (Auto) 0.0, Sodium 137, Potassium 4.2, Chloride 100, Carbon Dioxide 28, Anion Gap 13.2, BUN 25 H, Creatinine 1.20, Estimated Creat Clear 83, Estimated GFR 64, Est GFR ( Amer) 78, Glucose 108 H, Calcium 9.5, Total Bilirubin 0.4, AST 36, ALT 35, Alkaline Phosphatase 54, Total Protein 7.2, Albumin 4.4, Globulin 2.8, Albumin/Globulin Ratio 1.6 06/28/24 22:15 06/28/24 22:15 Orders (Tests/Meds): ED MEDICATIONS Discontinued Medications Generic Name Dose Route Start Last Admin Trade Name Freq PRN Reason Stop Dose Admin Acetaminophen 1,000 mg 06/28/24 21:00 06/28/24 21:15 Acetaminophen 500mg Tab PO 06/28/24 21:01 Not Given ONCE ONE Cyclobenzaprine HCl 10 mg 06/29/24 00:18 06/29/24 00:21 Cyclobenzaprine 10mg Tablet PO 06/29/24 00:19 10 mg ONCE ONE Administration Iopamidol 75 ml 06/28/24 22:44 06/28/24 22:45 Iopamidol-370 (76%);100ml Bottle IV 06/28/24 22:45 75 ml ONCE ONE Administration Ketorolac Tromethamine 15 mg 06/28/24 21:00 06/28/24 21:14 Ketorolac 30mg/Ml Vial IM 06/28/24 21:01 15 mg ONCE ONE Administration Lidocaine 1 each 06/28/24 21:00 06/28/24 21:13 Lidocaine 5% Transdermal Patch TP 06/28/24 21:01 1 each ONCE ONE Administration Methocarbamol 1,500 mg 06/28/24 21:00 06/28/24 21:14 Methocarbamol 500mg Tablet PO 07/28/24 20:59 1,500 mg BID LEOLA Administration Sodium Chloride 10 ml 06/28/24 22:44 06/28/24 22:45 Sodium Chloride 0.9% 10ml Syr (Rad Only) IV 07/28/24 22:43 10 ml NEEDED PRN Administration Maintain IV Site ORDERS Category Date Time Status CT abdomen pelvis w con Stat Cat Scan 06/28/24 21:00 Completed Complete Blood Count Auto Diff Stat Lab 06/28/24 22:15 Completed Comprehensive Metabolic Panel Stat Lab 06/28/24 22:15 Completed Urinalysis and Microscopic Stat Lab 06/28/24 20:37 Completed Medical Decision Narrative: In summary, this 49-year-old male presents to the emergency department today with right flank pain. On initial evaluation patient is hemodynamically stable alert and in no acute distress. Patient has no red flag symptoms, does have radiating pain to his right groin. He has a normal exam and bilateral cremasteric reflex.. Differential diagnosis includes but is not limited to kidney stone, muscular strain, hernia. Based on these concerns, I ordered CT, labs and pain medication. Patient received pain medication for treatment. Labs personally reviewed demonstrate no leukocytosis, mildly elevated BUN, mild hyperglycemia. CT imaging personally interpreted demonstrate no large stone, no hydronephrosis, no hemo or pneumoperitoneum. Patient was signed out to Dr. Mccoy awaiting final results of CT scan. <Joss Mccoy MD - Last Filed: 06/29/24 00:47> Vital Signs: 06/28/24 20:32 06/28/24 20:38 06/28/24 20:45 Temperature 98.2 F Temperature Source Oral Pulse Rate 77 70 Pulse Rate [Right Radial] 74 Respiratory Rate 16 Blood Pressure 137/83 121/82 Blood Pressure [Right Arm] 137/83 Blood Pressure Mean 101 95 Blood Pressure Mean [Right Arm] 101 Blood Pressure Source Blood Pressure Source [Right Arm] Automatic Cuff Blood Pressure Position 02 Sat by Pulse Oximetry 98 96 98 Oxygen Delivery Method Room Air 06/28/24 21:15 06/28/24 22:39 06/28/24 23:00 Temperature Temperature Source Pulse Rate 72 77 78 Pulse Rate [Right Radial] Respiratory Rate Blood Pressure 148/90 H 112/68 111/64 Blood Pressure [Right Arm] Blood Pressure Mean 109 Blood Pressure Mean [Right Arm] Blood Pressure Source Blood Pressure Source [Right Arm] Blood Pressure Position 02 Sat by Pulse Oximetry 97 98 97 Oxygen Delivery Method 06/28/24 23:15 06/28/24 23:30 06/28/24 23:45 Temperature Temperature Source Pulse Rate 70 71 72 Pulse Rate [Right Radial] Respiratory Rate Blood Pressure 117/70 118/80 128/83 Blood Pressure [Right Arm] Blood Pressure Mean 91 Blood Pressure Mean [Right Arm] Blood Pressure Source Blood Pressure Source [Right Arm] Blood Pressure Position 02 Sat by Pulse Oximetry 98 98 98 Oxygen Delivery Method 06/29/24 00:00 06/29/24 00:16 06/29/24 00:22 Temperature 97.9 F Temperature Source Oral Pulse Rate 72 72 Pulse Rate [Right Radial] Respiratory Rate 16 Blood Pressure 114/81 123/85 128/74 Blood Pressure [Right Arm] Blood Pressure Mean 91 91 Blood Pressure Mean [Right Arm] Blood Pressure Source Automatic Cuff Blood Pressure Source [Right Arm] Blood Pressure Position Supine 02 Sat by Pulse Oximetry 99 Oxygen Delivery Method Room Air Lab Data Lab Results 06/28/24 20:37: Urine Color Yellow, Urine Appearance Clear, Urine pH 6.5, Ur Specific Sherman 1.025, Urine Protein Negative, Urine Glucose (UA) Negative, Urine Ketones Negative, Urine Blood Negative, Urine Nitrate Negative, Urine Bilirubin Negative, Urine Urobilinogen 0.2, Ur Leukocyte Esterase Negative, Urine RBC None, Urine WBC None, Ur Squamous Epith Cells None, Urine Bacteria Trace 06/28/24 22:15: WBC 7.7, RBC 5.09, Hgb 14.4, Hct 43.4, MCV 85.3, MCH 28.3, MCHC 33.2, RDW 11.9, Plt Count 291, MPV 9.1, Neut % (Auto) 54.2, Lymph % (Auto) 36.5, Routt % (Auto) 6.4, Eos % (Auto) 2.0, Baso % (Auto) 0.5, Neut # (Auto) 4.2, Lymph # (Auto) 2.8, Routt # (Auto) 0.5, Eos # (Auto) 0.2, Baso # (Auto) 0.0, Sodium 137, Potassium 4.2, Chloride 100, Carbon Dioxide 28, Anion Gap 13.2, BUN 25 H, Creatinine 1.20, Estimated Creat Clear 83, Estimated GFR 64, Est GFR ( Amer) 78, Glucose 108 H, Calcium 9.5, Total Bilirubin 0.4, AST 36, ALT 35, Alkaline Phosphatase 54, Total Protein 7.2, Albumin 4.4, Globulin 2.8, Albumin/Globulin Ratio 1.6 Orders (Tests/Meds): ED MEDICATIONS Discontinued Medications Generic Name Dose Route Start Last Admin Trade Name Anastacioq PRN Reason Stop Dose Admin Acetaminophen 1,000 mg 06/28/24 21:00 06/28/24 21:15 Acetaminophen 500mg Tab PO 06/28/24 21:01 Not Given ONCE ONE Cyclobenzaprine HCl 10 mg 06/29/24 00:18 06/29/24 00:21 Cyclobenzaprine 10mg Tablet PO 06/29/24 00:19 10 mg ONCE ONE Administration Iopamidol 75 ml 06/28/24 22:44 06/28/24 22:45 Iopamidol-370 (76%);100ml Bottle IV 06/28/24 22:45 75 ml ONCE ONE Administration Ketorolac Tromethamine 15 mg 06/28/24 21:00 06/28/24 21:14 Ketorolac 30mg/Ml Vial IM 06/28/24 21:01 15 mg ONCE ONE Administration Lidocaine 1 each 06/28/24 21:00 06/28/24 21:13 Lidocaine 5% Transdermal Patch TP 06/28/24 21:01 1 each ONCE ONE Administration Methocarbamol 1,500 mg 06/28/24 21:00 06/28/24 21:14 Methocarbamol 500mg Tablet PO 07/28/24 20:59 1,500 mg BID LEOLA Administration Sodium Chloride 10 ml 06/28/24 22:44 06/28/24 22:45 Sodium Chloride 0.9% 10ml Syr (Rad Only) IV 07/28/24 22:43 10 ml NEEDED PRN Administration Maintain IV Site ORDERS Category Date Time Status CT abdomen pelvis w con Stat Cat Scan 06/28/24 21:00 Completed Complete Blood Count Auto Diff Stat Lab 06/28/24 22:15 Completed Comprehensive Metabolic Panel Stat Lab 06/28/24 22:15 Completed Urinalysis and Microscopic Stat Lab 06/28/24 20:37 Completed Medical Decision Narrative: In summary, this 49-year-old male presents to the emergency department today with right flank pain. On initial evaluation patient is hemodynamically stable alert and in no acute distress. Patient has no red flag symptoms, does have radiating pain to his right groin. He has a normal exam and bilateral cremasteric reflex.. Differential diagnosis includes but is not limited to kidney stone, muscular strain, hernia. Based on these concerns, I ordered CT, labs and pain medication. Patient received pain medication for treatment. Labs personally reviewed demonstrate no leukocytosis, mildly elevated BUN, mild hyperglycemia. CT imaging personally interpreted demonstrate no large stone, no hydronephrosis, no hemo or pneumoperitoneum. Patient was signed out to Dr. Mccoy awaiting final results of CT scan. Darius ASCENCIO: I assumed care of the patient at the time of handoff from the prior provider. CT imaging has multiple abnormal findings including stable benign-appearing lesion in the liver, avascular necrosis of the bilateral femoral heads without collapse. On reassessment patient's pain localizes to the right SI joint. He reports that he has had nerve ablation and injections there before and they did not help. Patient was encouraged to follow-up with PCP and with orthopedic surgery for further assessment of his abnormal imaging of the hips. Patient was discharged prescription for lidocaine patches and Robaxin. Return precautions given. Critical Care <Leon Johnson MD - Last Filed: 06/29/24 00:28> Critical Care Time Critical Care Time: No
--- NOTE | 2024-06-28 21:00 | CT_ITS ---
PROCEDURE INFORMATION: Exam: CT Abdomen And Pelvis With Contrast Exam date and time: 06/28/2024 10:44 PM Age: 49 years old Clinical indication: Abdominal pain; Additional info: Flank pain, radiating to right groin TECHNIQUE: Imaging protocol: Computed tomography of the abdomen and pelvis with contrast. Radiation optimization: All CT scans at this facility use at least one of these dose optimization techniques: automated exposure control; mA and/or kV adjustment per patient size (includes targeted exams where dose is matched to clinical indication); or iterative reconstruction. Contrast material: ISOVUE; Contrast volume: 75 ml; Contrast route: IV; COMPARISON: [id number] CT abdomen pelvis w con 01/26/2019 11:01 PM FINDINGS: Lungs: Lung bases are clear. Liver: A 6 mm low-density lesion too small to characterize noted in the right lobe of liver on image 25 of series 3. Fatty liver changes with associated hepatomegaly measuring 17.5 cm. Liver otherwise unremarkable. Gallbladder and biliary ducts: Normal. No calcified stones. No ductal dilation. Pancreas: Normal. No ductal dilation. Spleen: Normal. No splenomegaly. Adrenal glands: Normal. No mass. Kidneys and ureters: Normal. No hydronephrosis. Stomach and bowel: Unremarkable. No obstruction. No mucosal thickening. Appendix: Appendectomy changes. Intraperitoneal space: Unremarkable. No free air. No significant fluid collection. Vasculature: Unremarkable. No abdominal aortic aneurysm. Lymph nodes: Unremarkable. No enlarged lymph nodes. Urinary bladder: Unremarkable as visualized. Reproductive: Unremarkable as visualized. Bones/joints: Interval development of avascular necrosis of the femoral heads bilaterally without evident articular margin collapse. Interval development of a subarticular benign-appearing lucency in the left femoral head that might reflect a developing degenerative related geode. Soft tissues: Small fat containing left inguinal hernia similar to previous. IMPRESSION: 1. No acute abnormalities of the abdomen and pelvis. 2. Incidental 6 mm low-density lesion in the right lobe of the liver that has increased only minimally in size since previous study from 2019 compatible with a benign lesion of some type. 3. Interval development of avascular necrosis of the femoral heads bilaterally without evident articular margin collapse. Interval development of a subarticular benign-appearing lucency in the left femoral head that might reflect a developing degenerative related geode. 4. Additional nonemergent findings as above.
[2024-06-28] MEDS: LIDOCAINE 5% TRANSDERMAL PATCH 1 EACH TP (21:13)
[2024-06-28] MEDS: METHOCARBAMOL 500MG TABLET 1500 MG PO (21:14)
[2024-06-28] MEDS: KETOROLAC 30MG/ML VIAL 15 MG IM (21:14)
[2024-06-28 22:03] LABS: Appearance,Urine CLEAR (Clear); Bilirubin,Urine Negative (Negative); Blood, Urine Negative (Negative); Color,Urine YELLOW (Yellow); Glucose,Urine (UA) Negative (Negative); Ketones,Urine Negative (Negative); Leukocyte Esterase,Urine Negative (Negative); Microscopic, Urine URINE MICROSCOPIC (MICROSCOPIC); Nitrate,Urine Negative (Negative); PH,Urine 6.5 (5.0-8.5); Protein,Urine Negative (Negative); Specific Gravity, Urine 1.025 (1.005-1.030); Urobilinogen,Urine 0.2 EU/dl (0.2)
[2024-06-28 22:18] LABS: Bacteria,Urine Trace /lpf
[2024-06-28 22:24] LABS: Basophils % 0.5 % (0.1-2.0); Eosinophils # 0.2 K/mm3 (0.0-0.4); Hematocrit 43.4 % (42.0-52.0); Hemoglobin 14.4 g/dL (14.1-18.0); Lymphocytes # 2.8 K/mm3 (0.7-4.5); Lymphocytes % 36.5 % (10-50); Mean Corpuscular HGB Conc 33.2 g/dL (31.8-35.4); Mean Corpuscular Hemoglobin 28.3 pg (27.0-31.2); Mean Corpuscular Volume 85.3 fl (80-94); Mean Platelet Volume 9.1 fl (7.4-10.4); Monocytes # 0.5 K/mm3 (0.1-1.0); Monocytes % 6.4 % (1.7-9.3); Neutrophils # 4.2 K/mm3 (1.8-7.8); Neutrophils % 54.2 % (37.0-80.0); Platelet Count 291 K/mm3 (142-424); Red Blood Count 5.09 M/mm3 (4.60-6.20); Red Cell Distribution Width 11.9 % (11.5-17.5); White Blood Count 7.7 K/mm3 (4.8-10.8)
[2024-06-28 22:27] LABS: Chloride 100 mmol/L (98-107)
[2024-06-28 22:28] LABS: Albumin Level 4.4 g/dl (3.5-5.0); Potassium 4.2 mmoL/L (3.5-5.1); Sodium 137 mmol/L (136-145)
[2024-06-28 22:30] LABS: Alanine Aminotransferase 35 U/L (12-78); Blood Urea Nitrogen 25 mg/dl (9-20); Creatinine Clearance Estimated 83 mL/min (50-200); Estimated Glomerular Filt Rate 64 ml/min (>60); GFR (African American) 78 ML/MIN (>60)
[2024-06-28 22:31] LABS: Albumin/Globulin Ratio 1.6 (1.1-1.8); Alkaline Phosphatase 54 U/L (38-126); Anion Gap 13.2 mEq/L (5-15); Aspartate Amino Transferase 36 U/L (17-59); Bilirubin,Total 0.4 mg/dl (0.2-1.3); Calcium 9.5 mg/dl (8.4-10.2); Carbon Dioxide 28 mmol/L (22.0-30.0); Globulin 2.8 g/dL (1.3-3.2); Glucose 108 mg/dl (74-100); Total Protein,Serum 7.2 g/dl (6.3-8.2)
[2024-06-28] MEDS: IOPAMIDOL-370 (76%);100ML BOTTLE 75 ML IV (22:45)
[2024-06-28] MEDS: SODIUM CHLORIDE 0.9% 10ML SYR (RAD ONLY) 10 ML IV (22:45)
--- NOTE | 2024-06-28 23:37 | PC.NURSE ---
family was asking how long before xray will be read, spoke to radiology, read time in 111 to 127 minutes but they will contact them to see if they can bump the read up. family updated
[2024-06-29] VITALS: BP 114/81; PULSE 72; O2SAT 99
[2024-06-29 00:16] VITALS: BP 123/85
[2024-06-29] MEDS: CYCLOBENZAPRINE 10MG TABLET 10 MG PO (00:21)
[2024-06-29 00:22] VITALS: BP 128/74; PULSE 72; RESP 16; TEMP 36.6; O2SAT 98
== END 2024-06-29 00:29 | disposition home or self-care (01) ==
PROVIDERS: Emergency Provider Student in an Organized Health Care Education/Training Program; PCP Physician Assistant
DX: M53.3 Sacrococcygeal disorders, not elsewhere classified (principal); R93.2 Abnormal findings on diagnostic imaging of liver and biliary tract; M87.052 Idiopathic aseptic necrosis of left femur; M87.051 Idiopathic aseptic necrosis of right femur; M54.50 Low back pain, unspecified
CPT/HCPCS: 74177; 80053; 81001; 85025; 96372; 99285; J1885; Q9967

== ENCOUNTER 2024-10-29 11:04 | Outpatient (POV) | payer MEDICAID, SELFPAY ==
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
[2024-10-29 11:48] VITALS: BP 102/56; PULSE 74; RESP 18; O2SAT 97; BMI 24.4
== END 2024-10-29 23:59 | disposition home or self-care (01) ==
PROVIDERS: PCP Physician Assistant; Visit Provider Nurse Practitioner Family
DX: M46.1 Sacroiliitis, not elsewhere classified (principal); M54.41 Lumbago with sciatica, right side; G89.29 Other chronic pain; M25.551 Pain in right hip; M25.552 Pain in left hip; Z79.899 Other long term (current) drug therapy; Z73.89 Other problems related to life management difficulty
CPT/HCPCS: 99202; G0463

== ENCOUNTER 2024-12-02 12:16 | Day surgery (SDC) | payer MEDICAID, SELFPAY ==
[2024-12-02 12:23] VITALS: BP 109/71; PULSE 79; RESP 16; O2SAT 97; BMI 24.7
[2024-12-02 12:41] VITALS: BP 102/62; PULSE 73; RESP 16; O2SAT 96
[2024-12-02] MEDS: DEXAMETHASONE 10MG/ML 1ML VIAL 10 MG (12:48)
[2024-12-02] MEDS: BUPIVACAINE 0.25% 10ML INJ 25 MG IJ (12:48)
[2024-12-02] MEDS: LIDOCAINE 1% 5ML PF VIAL 5 ML (12:48)
--- NOTE | 2024-12-02 12:48 | P.PCN_ITS ---
Procedure Date: 12/02/24 Time: 12:20 Anesthesiologist:: Tyson Thomas CRNA Complications:: None Pre-procedure Diagnosis:: Bilateral sacroiliitis Post-procedure Diagnosis:: Same Indications for Procedure:: Patient is a very pleasant 49-year-old male who comes our clinic today for bilateral sacroiliac joint injection cortisone local anesthetic. Patient describes low lumbar back pain off the midline bilaterally. Bilateral posterior hip pain. Difficulty transitioning from sitting to standing. Difficulty with ambulation at times. He rates his pain 7/10. Procedure Details:: Procedure: Bilateral sacroiliac joint injections under fluoroscopy Informed consent was obtained and the risks and benefits of the procedure were explained to the patient.~ The patient was taken to the procedure room and noninvasive monitors were placed including a noninvasive blood pressure cuff and pulse oximeter.~ The patient was placed prone on the procedure table. Both hips were cleansed using Betadine as a cleansing solution. C-arm fluoroscopy was used to view the right sacroiliac joint.~ The skin and subcutaneous tissues were anesthetized using lidocaine 1.5% and a 25-gauge needle.~ After this, a 22-gauge spinal needle was inserted under fluoroscopic guidance into the inferior aspect of the right sacroiliac joint.~ Omnipaque dye was injected and good spread was seen throughout the joint.~ After this, approximately 5 mL of bupivacaine, 0.25% and Depo-Medrol, 40 mg was incrementally injected into the right sacroiliac joint. We then moved to the left sacroiliac joint.~ The skin and subcutaneous tissues were anesthetized using lidocaine 1.5% and a 25-gauge needle.~ After this, a 22- gauge spinal needle was inserted under fluoroscopic guidance into the inferior aspect of the left sacroiliac joint.~ Omnipaque dye was injected and good spread was seen throughout the joint. After this, approximately 5 mL of bupivacaine, 0.25% and Depo-Medrol, 40 mg was incrementally injected into the left sacroiliac joint.~ The patient tolerated the procedure well with no complications. The patient was observed in the Pain Clinic and then was discharged home neurologically intact. Plan and Disposition:: Patient was discharged without incident.
[2024-12-02 13:00] VITALS: BP 110/61; PULSE 74; RESP 18; O2SAT 96
[2024-12-02 13:02] VITALS: BP 110/61; PULSE 74; RESP 18; O2SAT 96
== END 2024-12-02 12:41 | disposition home or self-care (01) ==
LOC: SC.PAINP 12:17
PROVIDERS: PCP Physician Assistant; Visit Provider Nurse Anesthetist, Certified Registered
DX: M46.1 Sacroiliitis, not elsewhere classified (principal); Z79.82 Long term (current) use of aspirin; Z79.899 Other long term (current) drug therapy; F41.9 Anxiety disorder, unspecified; N40.0 Benign prostatic hyperplasia without lower urinary tract symptoms; F32.A Depression, unspecified; E78.5 Hyperlipidemia, unspecified; F43.10 Post-traumatic stress disorder, unspecified; Z88.8 Allergy status to other drugs, medicaments and biological substances
CPT/HCPCS: 27096; G0260; J0665; J1100; J2003

== ENCOUNTER 2025-01-29 08:51 | Outpatient (CLI) | payer MEDICAID, SELFPAY ==
--- NOTE | 2025-01-29 08:52 | XR_ITS ---
FINAL REPORT CLINICAL HISTORY: Femur pain FINDINGS: LEFT FEMUR Two views were obtained. There is no fracture or dislocation. The joint spaces appear normal. No soft tissue abnormality is identified. There is a tiny os acetabuli. IMPRESSION: No acute process. Reviewed, Interpreted and Dictated by Evelio Lott MD Transcribed by Mary Mirza Authenticated and [facility]
--- NOTE | 2025-01-29 08:52 | XR_ITS ---
FINAL REPORT CLINICAL HISTORY: Femur pain FINDINGS: RIGHT FEMUR Two views were obtained. There is no fracture or dislocation. The joint spaces appear normal. No soft tissue abnormality is identified. There is a tiny os acetabuli. There is a sclerotic focus measuring 18 millimeters in the distal femoral metaphysis, probably due to an enostosis. IMPRESSION: No acute process. Reviewed, Interpreted and Dictated by Evelio Lott MD Transcribed by Mary Mirza Authenticated and [facility]
== END 2025-01-29 23:59 | disposition home or self-care (01) ==
LOC: RAD 08:52
PROVIDERS: Visit Provider Physician Assistant
DX: M87.052 Idiopathic aseptic necrosis of left femur (principal); M87.051 Idiopathic aseptic necrosis of right femur
CPT/HCPCS: 73552

== ENCOUNTER 2025-04-02 13:16 | Outpatient (CLI) | payer MEDICAID, SELFPAY ==
--- NOTE | 2025-04-02 13:18 | MR_ITS ---
FINAL REPORT TECHNIQUE: Multiplanar and multisequence imaging of the lumbar spine was obtained without contrast. CLINICAL HISTORY: LUMBAR SPINE PAIN. BILATERAL LOW BACK PAIN AND GROIN. LEFT LEG PAIN TO KNEE COMPARISON: None FINDINGS: There is normal alignment of the lumbar vertebral bodies in the sagittal plane. Vertebral body height is preserved. The spinal cord ends at the level of L1. There is normal signal intensity within the substance of the distal spinal cord. No acute bone marrow edema or pathologic marrow replacement. No acute paraspinal abnormality is identified. L1-2: No focal disc herniation, central canal stenosis or neuroforaminal narrowing. L2-3: No focal disc herniation, central canal stenosis or neuroforaminal narrowing. L3-4: No focal disc herniation, central canal stenosis or neuroforaminal narrowing. L4-5: No focal disc herniation, central canal stenosis or neuroforaminal narrowing. L5-S1: No focal disc herniation, central canal stenosis or neuroforaminal narrowing. IMPRESSION: No evidence of focal disc herniation, central canal stenosis, or neural foraminal narrowing. Reviewed, Interpreted and Dictated by Kristie Rolon MD Transcribed by Saida Comer Authenticated and . [facility]
== END 2025-04-02 23:59 | disposition home or self-care (01) ==
LOC: RAD 13:16
PROVIDERS: PCP Physician Assistant; Visit Provider Specialist/Technologist Athletic Trainer
DX: M54.50 Low back pain, unspecified (principal)
CPT/HCPCS: 72148